=== PATIENT | male | born 1970 | race Caucasian/White ===

== ENCOUNTER 2018-02-19 03:01 | Emergency (ER) | payer OTHER ==
[~2018-02-19] VITALS: Ht 167.6 cm; Wt 77.1 kg
[~2018-02-19 03:01] MED LIST: AZIT250 PO; Bactrim Ds Tab1 EACH PO; CEFD300 PO; Cipro500 MG PO; Keflex500 MG PO; LORA1SY; Naprosyn500 MG PO; Norco 5-325 Ta1 EACH PO; TRAM50 PO; VICODIN 5-3001 EACH PO; Ventolin/Prove6.7 GM PO
[2018-02-19] MEDS ORDERED: Oxycodone HCl5 M1 PO (04:09)
== END 2018-02-19 04:28 | disposition home or self-care (01) ==
LOC: ER 03:01
DX: Z43.6 Encounter for attention to other artificial openings of urinary tract (principal); J45.909 Unspecified asthma, uncomplicated; F17.210 Nicotine dependence, cigarettes, uncomplicated; Z88.6 Allergy status to analgesic agent; Z79.51 Long term (current) use of inhaled steroids
CPT/HCPCS: 99282

== ENCOUNTER 2018-02-21 12:57 | Emergency (ER) | payer OTHER ==
[~2018-02-21] VITALS: Ht 167.6 cm; Wt 77.1 kg
[~2018-02-21 12:57] MED LIST changes: +Oxycodone HCl5 M1 PO
== END 2018-02-21 14:30 | disposition home or self-care (01) ==
LOC: ER 12:57
DX: N99.538 Other complication of continent stoma of urinary tract (principal); Z88.8 Allergy status to other drugs, medicaments and biological substances; Z79.899 Other long term (current) drug therapy; J45.909 Unspecified asthma, uncomplicated; F17.200 Nicotine dependence, unspecified, uncomplicated
CPT/HCPCS: 99282

== ENCOUNTER 2018-03-09 13:50 | Emergency (ER) | payer OTHER ==
[~2018-03-09] VITALS: Ht 167.6 cm; Wt 74.8 kg
[2018-03-09 14:32] LABS: Source, Urine Clean Catch
[2018-03-09 14:46] LABS: Bilirubin, Urine Neg (Neg); Blood, Urine 2+ (Neg); Glucose Qualitative, Urine Neg (Neg); Ketones, Urine Neg (Neg); Leukocyte Esterase, Urine 2+ (Neg); Nitrite, Urine Neg (Neg); Protein, Urine 1+ (Neg); Urobilinogen, Urine NORM (Normal)
[2018-03-09 14:55] LABS: Appearance, Urine Hazy (Clear); Color, Urine Yellow (P-Yellow)
[2018-03-09 14:56] LABS: Bacteria Many /hpf; Squamous Epithelial Cells Few /hpf (Few); White Blood Cells, Urine 50-100 /hpf (0-5)
[2018-03-09 15:33] LABS: BASOPHILS ABSOLUTE AUTO 0.03 K/mm3 (0.00-0.23); BASOPHILS PERCENT AUTO 0 % (0-2); EOSINOPHILS ABSOLUTE AUTO 0.17 K/mm3 (0.00-0.68); EOSINOPHILS PERCENT AUTO 2 % (0-6); Hematocrit 43.3 % (37.0-53.0); Hemoglobin 13.9 g/dL (13.5-17.5); IMMATURE GRAN ABSOLUTE AUTO 0.01 K/mm3 (0.00-0.10); IMMATURE GRAN PERCENT AUTO 0 % (0-1); LYMPHOCYTES ABSOLUTE AUTO 1.27 K/mm3 (0.84-5.20); LYMPHOCYTES PERCENT AUTO 15 % (21-46); MONOCYTES PERCENT AUTO 7 % (4-13); Mean Corpuscular HGB 31.4 pg (26.0-34.0); Mean Corpuscular HGB Conc 32.1 g/dL (31.5-36.5); Mean Corpuscular Volume 98 fL (80-100); Mean Platelet Volume 10.9 fL (9.1-12.4); NEUTROPHILS ABSOLUTE AUTO 6.16 K/mm3 (1.96-9.15); NEUTROPHILS PERCENT AUTO 75 % (41-73); Platelet Count 245 K/mm3 (150-400); RDW Coefficient Variation 12.9 % (11.7-14.2); RDW Standard Deviation 46.3 fL (35.1-46.3); Red Blood Cell Count 4.42 M/mm3 (4.30-5.90); White Blood Cell Count 8.24 K/mm3 (4.00-11.30)
[2018-03-09 15:41] LABS: Alanine Aminotransfer (ALT/SGP 18 U/L (12-78); Albumin, Blood 3.1 g/dL (3.4-5.0); Albumin/Globulin Ratio 0.7 (0.8-1.8); Alk Phos 86 U/L (50-136); Anion Gap 9 mmol/L (6-16); Aspartate Aminotrans (AST/SGOT 14 U/L (12-37); Bilirubin, Total 0.3 mg/dL (0.1-1.0); Blood Urea Nitrogen 7 mg/dL (8-24); Bun/Creatinine Ratio 8.1 (12.0-20.0); CO2, Blood 24 mmol/L (21-32); Calcium, Blood 8.4 mg/dL (8.5-10.1); Chloride, Blood 101 mmol/L (98-108); Creatinine, Blood 0.86 mg/dL (0.60-1.20); Globulin, Blood 4.7 g/dL (2.2-4.0); Glomerular Filtration Rate >60 (60-); Glucose, Blood 97 mg/dL (70-99); Potassium, Blood 3.7 mmol/L (3.5-5.5); Sodium, Blood 134 mmol/L (136-145); Total Protein, Blood 7.8 g/dL (6.4-8.2)
[2018-03-09] MEDS ORDERED: Keflex500 MG PO (16:22)
[2018-03-09] MEDS ORDERED: Roxicodone5 MG PO (16:22)
== END 2018-03-09 16:50 | disposition home or self-care (01) ==
LOC: ER 13:50
PROVIDERS: Physician Assistant
DX: N39.0 Urinary tract infection, site not specified (principal); J45.909 Unspecified asthma, uncomplicated; F17.200 Nicotine dependence, unspecified, uncomplicated; Z88.5 Allergy status to narcotic agent; Z79.51 Long term (current) use of inhaled steroids
CPT/HCPCS: 36415; 80053; 81001; 83605; 83690; 85025; 87077; 87086; 96374; 99282-25; J0696; J7120

== ENCOUNTER 2018-05-15 21:13 | Emergency (ER) | payer OTHER ==
[~2018-05-15] VITALS: Ht 170.2 cm; Wt 79.4 kg
[~2018-05-15 21:13] MED LIST changes: +CEPH500 PO; +Roxicodone5 MG PO
[2018-05-15 22:50] LABS: BASOPHILS ABSOLUTE AUTO 0.04 K/mm3 (0.00-0.23); BASOPHILS PERCENT AUTO 1 % (0-2); EOSINOPHILS ABSOLUTE AUTO 0.41 K/mm3 (0.00-0.68); EOSINOPHILS PERCENT AUTO 5 % (0-6); Hemoglobin 14.1 g/dL (13.5-17.5); IMMATURE GRAN ABSOLUTE AUTO 0.03 K/mm3 (0.00-0.10); IMMATURE GRAN PERCENT AUTO 0 % (0-1); LYMPHOCYTES ABSOLUTE AUTO 1.68 K/mm3 (0.84-5.20); LYMPHOCYTES PERCENT AUTO 20 % (21-46); MONOCYTES ABSOLUTE AUTO 0.57 K/mm3 (0.16-1.47); MONOCYTES PERCENT AUTO 7 % (4-13); Mean Corpuscular HGB 32.1 pg (26.0-34.0); Mean Corpuscular Volume 100 fL (80-100); Mean Platelet Volume 11.2 fL (9.1-12.4); NEUTROPHILS ABSOLUTE AUTO 5.52 K/mm3 (1.96-9.15); NEUTROPHILS PERCENT AUTO 67 % (41-73); Platelet Count 261 K/mm3 (150-400); RDW Coefficient Variation 12.6 % (11.7-14.2); RDW Standard Deviation 46.8 fL (35.1-46.3); Red Blood Cell Count 4.39 M/mm3 (4.30-5.90); White Blood Cell Count 8.25 K/mm3 (4.00-11.30)
[2018-05-15 23:08] LABS: Alanine Aminotransfer (ALT/SGP 20 U/L (12-78); Albumin, Blood 3.4 g/dL (3.4-5.0); Albumin/Globulin Ratio 0.9 (0.8-1.8); Alk Phos 55 U/L (50-136); Anion Gap 9 mmol/L (6-16); Aspartate Aminotrans (AST/SGOT 15 U/L (12-37); Bilirubin, Total 0.3 mg/dL (0.1-1.0); Blood Urea Nitrogen 16 mg/dL (8-24); CO2, Blood 26 mmol/L (21-32); Calcium, Blood 8.7 mg/dL (8.5-10.1); Chloride, Blood 108 mmol/L (98-108); Globulin, Blood 3.9 g/dL (2.2-4.0); Glomerular Filtration Rate >60 (60-); Glucose, Blood 141 mg/dL (70-99); Potassium, Blood 3.9 mmol/L (3.5-5.5); Sodium, Blood 143 mmol/L (136-145); Total Protein, Blood 7.3 g/dL (6.4-8.2)
== END 2018-05-16 00:01 | disposition home or self-care (01) ==
LOC: ER 21:13
PROVIDERS: Emergency Medicine
DX: R10.31 Right lower quadrant pain (principal); G89.29 Other chronic pain; Z88.6 Allergy status to analgesic agent
CPT/HCPCS: 36415; 74022; 80053; 83690; 85025; 96374; 99283-25; J1885

== ENCOUNTER 2018-07-12 04:01 | Emergency (ER) | payer OTHER ==
[~2018-07-12] VITALS: Ht 177.8 cm; Wt 81.7 kg
[~2018-07-12 04:01] MED LIST changes: +ALBU90OI INH; +IBUP600 PO; +OXYC10ER
[2018-07-12 04:47] LABS: BASOPHILS ABSOLUTE AUTO 0.03 K/mm3 (0.00-0.23); BASOPHILS PERCENT AUTO 0 % (0-2); EOSINOPHILS ABSOLUTE AUTO 0.41 K/mm3 (0.00-0.68); EOSINOPHILS PERCENT AUTO 5 % (0-6); Hematocrit 41.2 % (37.0-53.0); Hemoglobin 13.5 g/dL (13.5-17.5); IMMATURE GRAN ABSOLUTE AUTO 0.03 K/mm3 (0.00-0.10); IMMATURE GRAN PERCENT AUTO 0 % (0-1); LYMPHOCYTES ABSOLUTE AUTO 2.09 K/mm3 (0.84-5.20); LYMPHOCYTES PERCENT AUTO 26 % (21-46); MONOCYTES ABSOLUTE AUTO 0.53 K/mm3 (0.16-1.47); MONOCYTES PERCENT AUTO 7 % (4-13); Mean Corpuscular HGB 32.5 pg (26.0-34.0); Mean Corpuscular HGB Conc 32.8 g/dL (31.5-36.5); Mean Corpuscular Volume 99 fL (80-100); Mean Platelet Volume 11.5 fL (9.1-12.4); NEUTROPHILS ABSOLUTE AUTO 4.82 K/mm3 (1.96-9.15); NEUTROPHILS PERCENT AUTO 61 % (41-73); Platelet Count 219 K/mm3 (150-400); RDW Coefficient Variation 12.4 % (11.7-14.2); RDW Standard Deviation 45.4 fL (35.1-46.3); Red Blood Cell Count 4.16 M/mm3 (4.30-5.90); White Blood Cell Count 7.91 K/mm3 (4.00-11.30)
[2018-07-12 05:05] LABS: Alanine Aminotransfer (ALT/SGP 24 U/L (12-78); Albumin, Blood 3.5 g/dL (3.4-5.0); Albumin/Globulin Ratio 0.9 (0.8-1.8); Alk Phos 57 U/L (50-136); Anion Gap 7 mmol/L (6-16); Aspartate Aminotrans (AST/SGOT 18 U/L (12-37); Bilirubin, Total 0.5 mg/dL (0.1-1.0); Blood Urea Nitrogen 17 mg/dL (8-24); Bun/Creatinine Ratio 17.5 (12.0-20.0); CO2, Blood 26 mmol/L (21-32); Calcium, Blood 8.6 mg/dL (8.5-10.1); Chloride, Blood 105 mmol/L (98-108); Creatinine, Blood 0.97 mg/dL (0.60-1.20); Globulin, Blood 3.9 g/dL (2.2-4.0); Glomerular Filtration Rate >60 (60-); Glucose, Blood 101 mg/dL (70-99); Sodium, Blood 138 mmol/L (136-145); Total Protein, Blood 7.4 g/dL (6.4-8.2)
== END 2018-07-12 06:15 | disposition home or self-care (01) ==
LOC: ER 04:01
PROVIDERS: Emergency Medicine
DX: R10.84 Generalized abdominal pain (principal); Z59.0 Homelessness; Z88.8 Allergy status to other drugs, medicaments and biological substances; F17.210 Nicotine dependence, cigarettes, uncomplicated; J45.909 Unspecified asthma, uncomplicated; Z85.51 Personal history of malignant neoplasm of bladder
CPT/HCPCS: 36415; 74176; 80053; 83690; 85025; 96374; 96375; 99284-25; J2405; J3010; J7030

== ENCOUNTER 2018-07-13 18:02 | Emergency (ER) | payer OTHER ==
[~2018-07-13] VITALS: Ht 167.6 cm; Wt 79.4 kg
== END 2018-07-13 21:06 | disposition home or self-care (01) ==
LOC: ER 18:02
DX: T83.84XA Pain due to genitourinary prosthetic devices, implants and grafts, initial encounter (principal); J45.909 Unspecified asthma, uncomplicated; Z87.891 Personal history of nicotine dependence
CPT/HCPCS: 99282

== ENCOUNTER 2018-07-24 10:42 | Emergency (ER) | payer OTHER ==
[~2018-07-24] VITALS: Ht 170.2 cm; Wt 79.4 kg
== END 2018-07-24 11:13 | disposition home or self-care (01) ==
LOC: ER 10:42
DX: Z43.6 Encounter for attention to other artificial openings of urinary tract (principal); Z71.89 Other specified counseling; Z88.8 Allergy status to other drugs, medicaments and biological substances; J45.909 Unspecified asthma, uncomplicated; Z87.891 Personal history of nicotine dependence
CPT/HCPCS: 99282

== ENCOUNTER 2018-07-31 19:23 | Emergency (ER) | payer OTHER ==
[~2018-07-31] VITALS: Ht 167.6 cm; Wt 81.2 kg
[2018-07-31] MEDS ORDERED: [UNRECOGNIZED DRUG - SUPPLY] TOP (19:56)
== END 2018-07-31 20:11 | disposition home or self-care (01) ==
LOC: ER 19:23
DX: Z43.6 Encounter for attention to other artificial openings of urinary tract (principal); Z87.891 Personal history of nicotine dependence
CPT/HCPCS: 99282

== ENCOUNTER 2018-08-03 09:37 | Emergency (ER) | payer OTHER ==
[~2018-08-03] VITALS: Ht 177.8 cm; Wt 77.1 kg
[~2018-08-03 09:37] MED LIST changes: +[UNRECOGNIZED DRUG - SUPPLY] TOP
== END 2018-08-03 10:37 | disposition home or self-care (01) ==
LOC: ER 09:37
DX: Z43.6 Encounter for attention to other artificial openings of urinary tract (principal); Z87.891 Personal history of nicotine dependence
CPT/HCPCS: 99282

== ENCOUNTER 2018-08-05 12:33 | Emergency (ER) | payer OTHER ==
[~2018-08-05] VITALS: Ht 167.6 cm; Wt 79.4 kg
== END 2018-08-05 13:30 | disposition home or self-care (01) ==
LOC: ER 12:33
DX: Z46.6 Encounter for fitting and adjustment of urinary device (principal); Z87.891 Personal history of nicotine dependence; Z88.6 Allergy status to analgesic agent
CPT/HCPCS: 99282

== ENCOUNTER 2018-08-11 05:59 | Emergency (ER) | payer OTHER ==
[~2018-08-11] VITALS: Ht 167.6 cm; Wt 77.1 kg
== END 2018-08-11 07:18 | disposition home or self-care (01) ==
LOC: ER 05:59
DX: Z43.6 Encounter for attention to other artificial openings of urinary tract (principal); Z88.8 Allergy status to other drugs, medicaments and biological substances; Z79.899 Other long term (current) drug therapy
CPT/HCPCS: 99282

== ENCOUNTER 2018-08-14 10:17 | Emergency (ER) | payer OTHER ==
[~2018-08-14] VITALS: Ht 167.6 cm; Wt 77.1 kg
[2018-08-14 13:50] LABS: BASOPHILS ABSOLUTE AUTO 0.05 K/mm3 (0.00-0.23); BASOPHILS PERCENT AUTO 1 % (0-2); EOSINOPHILS ABSOLUTE AUTO 0.23 K/mm3 (0.00-0.68); EOSINOPHILS PERCENT AUTO 3 % (0-6); Hematocrit 48.4 % (37.0-53.0); Hemoglobin 15.3 g/dL (13.5-17.5); IMMATURE GRAN ABSOLUTE AUTO 0.02 K/mm3 (0.00-0.10); IMMATURE GRAN PERCENT AUTO 0 % (0-1); LYMPHOCYTES ABSOLUTE AUTO 2.57 K/mm3 (0.84-5.20); LYMPHOCYTES PERCENT AUTO 31 % (21-46); MONOCYTES ABSOLUTE AUTO 0.65 K/mm3 (0.16-1.47); MONOCYTES PERCENT AUTO 8 % (4-13); Mean Corpuscular HGB Conc 31.6 g/dL (31.5-36.5); Mean Corpuscular Volume 101 fL (80-100); NEUTROPHILS ABSOLUTE AUTO 4.92 K/mm3 (1.96-9.15); NEUTROPHILS PERCENT AUTO 58 % (41-73); Platelet Count 255 K/mm3 (150-400); RDW Coefficient Variation 12.4 % (11.7-14.2); RDW Standard Deviation 46.8 fL (35.1-46.3); Red Blood Cell Count 4.78 M/mm3 (4.30-5.90); White Blood Cell Count 8.44 K/mm3 (4.00-11.30)
[2018-08-14 14:20] LABS: Alanine Aminotransfer (ALT/SGP 23 U/L (12-78); Albumin, Blood 3.8 g/dL (3.4-5.0); Albumin/Globulin Ratio 0.9 (0.8-1.8); Alk Phos 62 U/L (50-136); Anion Gap 5 mmol/L (6-16); Aspartate Aminotrans (AST/SGOT 15 U/L (12-37); Bilirubin, Total 0.7 mg/dL (0.1-1.0); Blood Urea Nitrogen 12 mg/dL (8-24); Bun/Creatinine Ratio 11.5 (12.0-20.0); CO2, Blood 29 mmol/L (21-32); Calcium, Blood 8.6 mg/dL (8.5-10.1); Chloride, Blood 105 mmol/L (98-108); Creatinine, Blood 1.04 mg/dL (0.60-1.20); Globulin, Blood 4.4 g/dL (2.2-4.0); Glomerular Filtration Rate >60 (60-); Glucose, Blood 70 mg/dL (70-99); Potassium, Blood 3.7 mmol/L (3.5-5.5); Sodium, Blood 139 mmol/L (136-145); Total Protein, Blood 8.2 g/dL (6.4-8.2)
[2018-08-14 14:39] LABS: Source, Urine Urostomy Bag
[2018-08-14 14:47] LABS: Bilirubin, Urine Neg (Neg); Blood, Urine 3+ (Neg); Glucose Qualitative, Urine Neg (Neg); Ketones, Urine Neg (Neg); Leukocyte Esterase, Urine 2+ (Neg); Nitrite, Urine Neg (Neg); Protein, Urine 3+ (Neg); Urobilinogen, Urine NORM (Normal)
[2018-08-14 14:57] LABS: Appearance, Urine Clear (Clear); Color, Urine Yellow (P-Yellow)
[2018-08-14 14:58] LABS: Red Blood Cells, Urine TNTC /hpf (0-2); White Blood Cells, Urine TNTC /hpf (0-5)
[2018-08-14 15:02] LABS: Bacteria Mod /hpf; Squamous Epithelial Cells Not Seen /hpf (Few)
[2018-08-14] MEDS ORDERED: Cefpodoxime Pr100 MG PO (15:19)
== END 2018-08-14 15:42 | disposition home or self-care (01) ==
LOC: ER 10:17
PROVIDERS: Physician Assistant
DX: T83.038A Leakage of other urinary catheter, initial encounter (principal); N39.0 Urinary tract infection, site not specified; R82.71 Bacteriuria; Z88.6 Allergy status to analgesic agent; Z87.891 Personal history of nicotine dependence
CPT/HCPCS: 36415; 74176; 80053; 81001; 85025; 87077; 87086; 87186; 96365; 96375; 99283-25; J0696; J1885

== ENCOUNTER 2018-08-23 18:33 | Emergency (ER) | payer OTHER ==
[~2018-08-23] VITALS: Ht 167.6 cm; Wt 77.1 kg
[~2018-08-23 18:33] MED LIST changes: +Cefpodoxime Pr100 MG PO
[2018-08-23 20:23] LABS: BASOPHILS ABSOLUTE AUTO 0.06 K/mm3 (0.00-0.23); BASOPHILS PERCENT AUTO 1 % (0-2); EOSINOPHILS ABSOLUTE AUTO 0.22 K/mm3 (0.00-0.68); EOSINOPHILS PERCENT AUTO 3 % (0-6); IMMATURE GRAN ABSOLUTE AUTO 0.01 K/mm3 (0.00-0.10); IMMATURE GRAN PERCENT AUTO 0 % (0-1); LYMPHOCYTES ABSOLUTE AUTO 2.79 K/mm3 (0.84-5.20); LYMPHOCYTES PERCENT AUTO 40 % (21-46); MONOCYTES ABSOLUTE AUTO 0.55 K/mm3 (0.16-1.47); MONOCYTES PERCENT AUTO 8 % (4-13); Mean Corpuscular HGB 31.9 pg (26.0-34.0); Mean Corpuscular HGB Conc 32.4 g/dL (31.5-36.5); Mean Corpuscular Volume 99 fL (80-100); NEUTROPHILS ABSOLUTE AUTO 3.43 K/mm3 (1.96-9.15); NEUTROPHILS PERCENT AUTO 49 % (41-73); Platelet Count 244 K/mm3 (150-400); RDW Coefficient Variation 11.9 % (11.7-14.2); RDW Standard Deviation 44.1 fL (35.1-46.3); Red Blood Cell Count 5.64 M/mm3 (4.30-5.90); White Blood Cell Count 7.06 K/mm3 (4.00-11.30)
[2018-08-23 20:34] LABS: Hematocrit 55.6 % (37.0-53.0)
[2018-08-23 20:48] LABS: Alanine Aminotransfer (ALT/SGP 27 U/L (12-78); Albumin, Blood 4.6 g/dL (3.4-5.0); Albumin/Globulin Ratio 0.9 (0.8-1.8); Alk Phos 69 U/L (50-136); Anion Gap 4 mmol/L (6-16); Aspartate Aminotrans (AST/SGOT 16 U/L (12-37); Bilirubin, Total 0.5 mg/dL (0.1-1.0); Blood Urea Nitrogen 16 mg/dL (8-24); Bun/Creatinine Ratio 15.1 (12.0-20.0); CO2, Blood 28 mmol/L (21-32); Calcium, Blood 9.8 mg/dL (8.5-10.1); Chloride, Blood 104 mmol/L (98-108); Creatinine, Blood 1.06 mg/dL (0.60-1.20); Globulin, Blood 5.3 g/dL (2.2-4.0); Glomerular Filtration Rate >60 (60-); Glucose, Blood 63 mg/dL (70-99); Potassium, Blood 4.3 mmol/L (3.5-5.5); Sodium, Blood 136 mmol/L (136-145); Total Protein, Blood 9.9 g/dL (6.4-8.2)
== END 2018-08-23 21:34 | disposition home or self-care (01) ==
LOC: ER 18:33
PROVIDERS: Physician Assistant
DX: T83.038A Leakage of other urinary catheter, initial encounter (principal); Z91.19 Patient's noncompliance with other medical treatment and regimen; Z88.8 Allergy status to other drugs, medicaments and biological substances; Z79.899 Other long term (current) drug therapy; Z87.891 Personal history of nicotine dependence
CPT/HCPCS: 74176; 80053; 85025; 99283-25

== ENCOUNTER 2018-08-31 00:42 | Emergency (ER) | payer OTHER ==
[~2018-08-31] VITALS: Ht 167.6 cm; Wt 77.1 kg
== END 2018-08-31 02:21 | disposition home or self-care (01) ==
LOC: ER 00:42
DX: Z43.6 Encounter for attention to other artificial openings of urinary tract (principal); Z88.5 Allergy status to narcotic agent; Z79.899 Other long term (current) drug therapy; Z87.891 Personal history of nicotine dependence
CPT/HCPCS: 99282

== ENCOUNTER 2018-09-02 12:39 | Emergency (ER) | payer OTHER ==
[~2018-09-02] VITALS: Ht 167.6 cm; Wt 77.1 kg
== END 2018-09-02 13:46 | disposition home or self-care (01) ==
LOC: ER 12:39
DX: Z43.6 Encounter for attention to other artificial openings of urinary tract (principal); Z87.891 Personal history of nicotine dependence; Z88.6 Allergy status to analgesic agent

== ENCOUNTER 2018-10-03 07:20 | Emergency (ER) | payer OTHER ==
[~2018-10-03] VITALS: Ht 167.6 cm; Wt 79.4 kg
== END 2018-10-03 09:29 | disposition home or self-care (01) ==
LOC: ER 07:20
DX: T83.198A Other mechanical complication of other urinary devices and implants, initial encounter (principal); Z88.8 Allergy status to other drugs, medicaments and biological substances; Z87.891 Personal history of nicotine dependence; Z79.899 Other long term (current) drug therapy
CPT/HCPCS: 99282

== ENCOUNTER 2018-10-11 22:46 | Emergency (ER) | payer OTHER ==
[~2018-10-11] VITALS: Ht 170.2 cm; Wt 76.2 kg
== END 2018-10-12 01:00 | disposition home or self-care (01) ==
LOC: ER 22:46
DX: Z43.6 Encounter for attention to other artificial openings of urinary tract (principal); F17.200 Nicotine dependence, unspecified, uncomplicated; Z85.46 Personal history of malignant neoplasm of prostate; Z85.51 Personal history of malignant neoplasm of bladder; Z88.6 Allergy status to analgesic agent
CPT/HCPCS: 99282

== ENCOUNTER 2018-10-14 22:52 | Emergency (ER) | payer OTHER ==
[~2018-10-14] VITALS: Ht 167.6 cm; Wt 74.8 kg
== END 2018-10-15 00:25 | disposition home or self-care (01) ==
LOC: ER 22:52
DX: Z43.6 Encounter for attention to other artificial openings of urinary tract (principal); Z88.8 Allergy status to other drugs, medicaments and biological substances; Z79.899 Other long term (current) drug therapy
CPT/HCPCS: 99282

== ENCOUNTER 2018-10-16 11:51 | Emergency (ER) | payer OTHER ==
[~2018-10-16] VITALS: Ht 172.7 cm; Wt 68.0 kg
== END 2018-10-16 13:25 | disposition home or self-care (01) ==
LOC: ER 11:51
DX: C67.9 Malignant neoplasm of bladder, unspecified (principal); F17.200 Nicotine dependence, unspecified, uncomplicated
CPT/HCPCS: 99282

== ENCOUNTER 2018-10-19 18:51 | Emergency (ER) | payer OTHER ==
[~2018-10-19] VITALS: Ht 167.6 cm; Wt 76.2 kg
== END 2018-10-19 19:44 | disposition home or self-care (01) ==
LOC: ER 18:51
DX: Z43.6 Encounter for attention to other artificial openings of urinary tract (principal); Z88.8 Allergy status to other drugs, medicaments and biological substances; Z79.899 Other long term (current) drug therapy; F17.200 Nicotine dependence, unspecified, uncomplicated
CPT/HCPCS: 99282

== ENCOUNTER 2018-10-24 11:32 | Emergency (ER) | payer OTHER ==
[~2018-10-24] VITALS: Ht 167.6 cm; Wt 77.1 kg
== END 2018-10-24 12:18 | disposition home or self-care (01) ==
LOC: ER 11:32
DX: Z43.6 Encounter for attention to other artificial openings of urinary tract (principal); Z76.0 Encounter for issue of repeat prescription; Z88.8 Allergy status to other drugs, medicaments and biological substances
CPT/HCPCS: 99282

== ENCOUNTER 2018-10-29 02:15 | Emergency (ER) | payer OTHER ==
[~2018-10-29] VITALS: Ht 167.6 cm; Wt 77.1 kg
== END 2018-10-29 03:03 | disposition left against medical advice (07) ==
LOC: ER 02:15
DX: Z53.21 Procedure and treatment not carried out due to patient leaving prior to being seen by health care provider (principal)

== ENCOUNTER 2018-11-02 00:51 | Emergency (ER) | payer OTHER ==
[~2018-11-02] VITALS: Ht 167.6 cm; Wt 79.4 kg
== END 2018-11-02 01:50 | disposition home or self-care (01) ==
LOC: ER 00:51
DX: Z43.6 Encounter for attention to other artificial openings of urinary tract (principal); F17.210 Nicotine dependence, cigarettes, uncomplicated
CPT/HCPCS: 99282

== ENCOUNTER 2018-11-05 11:29 | Emergency (ER) | payer OTHER ==
[~2018-11-05] VITALS: Ht 167.6 cm; Wt 79.4 kg
== END 2018-11-05 12:50 | disposition home or self-care (01) ==
LOC: ER 11:29
DX: Z43.6 Encounter for attention to other artificial openings of urinary tract (principal); L23.1 Allergic contact dermatitis due to adhesives; F17.200 Nicotine dependence, unspecified, uncomplicated; Z88.6 Allergy status to analgesic agent

== ENCOUNTER 2018-11-09 03:00 | Emergency (ER) | payer OTHER ==
[~2018-11-09] VITALS: Ht 167.6 cm; Wt 81.7 kg
== END 2018-11-09 03:49 | disposition home or self-care (01) ==
LOC: ER 03:00
DX: T83.038A Leakage of other urinary catheter, initial encounter (principal); Z88.8 Allergy status to other drugs, medicaments and biological substances; Z79.899 Other long term (current) drug therapy; F17.210 Nicotine dependence, cigarettes, uncomplicated
CPT/HCPCS: 99282

== ENCOUNTER 2018-11-15 12:04 | Emergency (ER) | payer OTHER ==
[~2018-11-15] VITALS: Ht 167.6 cm; Wt 81.7 kg
[2018-11-15] MEDS ORDERED: TRAM50 PO (12:44)
== END 2018-11-15 13:00 | disposition home or self-care (01) ==
LOC: ER 12:04
DX: S00.03XA Contusion of scalp, initial encounter (principal); Z93.6 Other artificial openings of urinary tract status; F17.210 Nicotine dependence, cigarettes, uncomplicated; X58.XXXA Exposure to other specified factors, initial encounter

== ENCOUNTER 2018-11-19 20:42 | Emergency (ER) | payer OTHER ==
[~2018-11-19] VITALS: Ht 167.6 cm; Wt 79.4 kg
== END 2018-11-19 23:45 | disposition left against medical advice (07) ==
LOC: ER 20:42
DX: Z53.21 Procedure and treatment not carried out due to patient leaving prior to being seen by health care provider (principal)

== ENCOUNTER 2018-11-22 22:21 | Emergency (ER) | payer OTHER ==
[~2018-11-22] VITALS: Ht 167.6 cm; Wt 79.4 kg
== END 2018-11-22 23:32 | disposition home or self-care (01) ==
LOC: ER 22:21
DX: Z46.6 Encounter for fitting and adjustment of urinary device (principal); F17.210 Nicotine dependence, cigarettes, uncomplicated; Z88.8 Allergy status to other drugs, medicaments and biological substances; Z79.899 Other long term (current) drug therapy
CPT/HCPCS: 99282

== ENCOUNTER 2018-11-29 11:33 | Emergency (ER) | payer OTHER ==
[~2018-11-29] VITALS: Ht 167.6 cm; Wt 79.4 kg
== END 2018-11-29 13:25 | disposition home or self-care (01) ==
LOC: ER 11:33
DX: Z43.6 Encounter for attention to other artificial openings of urinary tract (principal); Z88.8 Allergy status to other drugs, medicaments and biological substances; Z79.899 Other long term (current) drug therapy; F17.210 Nicotine dependence, cigarettes, uncomplicated
CPT/HCPCS: 99282

== ENCOUNTER 2018-12-02 16:25 | Emergency (ER) | payer OTHER ==
[~2018-12-02] VITALS: Ht 165.1 cm; Wt 68.0 kg
== END 2018-12-02 16:53 | disposition home or self-care (01) ==
LOC: ER 16:25
DX: Z43.6 Encounter for attention to other artificial openings of urinary tract (principal); F17.210 Nicotine dependence, cigarettes, uncomplicated; Z88.6 Allergy status to analgesic agent
CPT/HCPCS: 99282

== ENCOUNTER 2018-12-14 16:33 | Emergency (ER) | payer OTHER ==
[~2018-12-14] VITALS: Ht 167.6 cm; Wt 77.1 kg
== END 2018-12-14 17:54 | disposition home or self-care (01) ==
LOC: ER 16:33
DX: Z43.6 Encounter for attention to other artificial openings of urinary tract (principal); Z79.899 Other long term (current) drug therapy; F17.210 Nicotine dependence, cigarettes, uncomplicated
CPT/HCPCS: 99282

== ENCOUNTER 2018-12-27 21:24 | Emergency (ER) | payer OTHER ==
[~2018-12-27] VITALS: Ht 167.6 cm; Wt 79.4 kg
== END 2018-12-28 00:20 | disposition home or self-care (01) ==
LOC: ER 21:24
DX: Z43.6 Encounter for attention to other artificial openings of urinary tract (principal); F17.200 Nicotine dependence, unspecified, uncomplicated; Z88.6 Allergy status to analgesic agent
CPT/HCPCS: 76770; 99284-25

== ENCOUNTER 2019-02-17 15:49 | Emergency (ER) | payer OTHER ==
[~2019-02-17] VITALS: Ht 167.6 cm; Wt 79.4 kg
[2019-02-17] MEDS ORDERED: LIDO700A20 TOP (16:18)
[2019-02-17] MEDS ORDERED: IBUP800 PO (16:18)
[2019-02-17] MEDS ORDERED: Robaxin-750750 MG PO (16:18)
[2019-02-17] MEDS ORDERED: ALBU90OI INH (16:22)
== END 2019-02-17 16:26 | disposition home or self-care (01) ==
LOC: ER 15:49
DX: M54.6 Pain in thoracic spine (principal); F17.210 Nicotine dependence, cigarettes, uncomplicated; Z88.6 Allergy status to analgesic agent
CPT/HCPCS: 99283

== ENCOUNTER 2019-05-05 01:01 | Emergency (ER) | payer OTHER ==
[~2019-05-05] VITALS: Ht 167.6 cm; Wt 79.4 kg
[~2019-05-05 01:01] MED LIST changes: +IBUP800 PO; +LIDO700A20 TOP; +Robaxin-750750 MG PO
== END 2019-05-05 02:55 | disposition left against medical advice (07) ==
LOC: ER 01:01
DX: Z53.21 Procedure and treatment not carried out due to patient leaving prior to being seen by health care provider (principal)

== ENCOUNTER 2019-11-23 00:20 | Emergency (ER) | payer SELFPAY | END 2019-11-23 01:30 | disposition home or self-care (01) | DX: N99.522 Malfunction of incontinent external stoma of urinary tract (principal); F17.210 Nicotine dependence, cigarettes, uncomplicated; Z88.5 Allergy status to narcotic agent ==

== ENCOUNTER 2020-02-20 18:12 | Observation (INO) | payer OTHER ==
[~2020-02-20] VITALS: Ht 167.6 cm; Wt 75.8 kg
[~2020-02-20 18:12] MED LIST changes: +Magic Bullet10 MG PR; +Magnesium Citr296 ML PO
[2020-02-20 19:36] LABS: BASOPHILS ABSOLUTE AUTO 0.05 K/mm3 (0.00-0.23); BASOPHILS PERCENT AUTO 0 % (0-2); EOSINOPHILS ABSOLUTE AUTO 0.16 K/mm3 (0.00-0.68); EOSINOPHILS PERCENT AUTO 1 % (0-6); Hematocrit 51.6 % (37.0-53.0); IMMATURE GRAN ABSOLUTE AUTO 0.05 K/mm3 (0.00-0.10); IMMATURE GRAN PERCENT AUTO 0 % (0-1); LYMPHOCYTES ABSOLUTE AUTO 1.87 K/mm3 (0.84-5.20); LYMPHOCYTES PERCENT AUTO 15 % (21-46); MONOCYTES PERCENT AUTO 5 % (4-13); Mean Corpuscular HGB 31.2 pg (26.0-34.0); Mean Corpuscular HGB Conc 32.9 g/dL (31.5-36.5); Mean Corpuscular Volume 95 fL (80-100); Mean Platelet Volume 10.8 fL (9.1-12.4); NEUTROPHILS ABSOLUTE AUTO 9.51 K/mm3 (1.96-9.15); NEUTROPHILS PERCENT AUTO 78 % (41-73); Platelet Count 313 K/mm3 (150-400); RDW Coefficient Variation 13.2 % (11.7-14.2); Red Blood Cell Count 5.45 M/mm3 (4.30-5.90); White Blood Cell Count 12.24 K/mm3 (4.00-11.30)
[2020-02-20 20:01] LABS: Troponin I <0.015 ng/mL (0.000-0.040)
[2020-02-20 20:03] LABS: Alanine Aminotransfer (ALT/SGP 85 U/L (12-78); Albumin, Blood 3.4 g/dL (3.4-5.0); Albumin/Globulin Ratio 0.7 (0.8-1.8); Alk Phos 74 U/L (50-136); Anion Gap 4 mmol/L (6-16); Aspartate Aminotrans (AST/SGOT 63 U/L (12-37); Bilirubin, Direct <0.1 mg/dL (0.0-0.3); Bilirubin, Indirect Unable to Calculate mg/dL (0.1-0.7); Bilirubin, Total 0.3 mg/dL (0.1-1.0); Blood Urea Nitrogen 12 mg/dL (8-24); Bun/Creatinine Ratio 14.7 (12.0-20.0); CO2, Blood 26 mmol/L (21-32); Calcium, Blood 9.1 mg/dL (8.5-10.1); Chloride, Blood 108 mmol/L (98-108); Creatinine, Blood 0.82 mg/dL (0.60-1.20); Glomerular Filtration Rate >60 (60-); Glucose, Blood 125 mg/dL (70-99); Sodium, Blood 138 mmol/L (136-145); Total Protein, Blood 8.4 g/dL (6.4-8.2)
--- NOTE | 2020-02-21 00:26 | NUR ---
History, Chart, Medications and Allergies reviewed before start of procedure. Lungs clear T/O to Auscultation. Pre-Op teaching done. Pt verbalizes understanding. PT REPORTS LAST ATE A SOFT TACO ABOUT 2 HOURS PRIOR TO ARRIVAL AT HOSPITAL. C/O PAIN MID-EPIGASTRIC AREA 02/17. PT IS SLEEPY AND FALLS BACK TO SLEEP WITH LIGHT SNORING RESPIRATIONS. APPEARS TO BE TOLERATING HIS SECRETIONS AT THIS TIME.\
--- NOTE | 2020-02-21 00:42 | NUR ---
02/21/20 0042 GeraldOlayinka PATIENT DETERMINED TO BE ASA APPROPRIATE FOR PROPOFOL SEDATION PRIOR TO START OF PROCEDURE BY DR. FRANK. DISCUSSED USE OF DEEP VS MOD DR REQUESTING DEEP. PATIENT HAS BEEN NPO WHILE IN ER SINCE ABOUT 1800 NO FOOD SINCE EARLY AFTER NOON. Bite Block Placed History, Chart, Medications and Allergies reviewed before start of procedure.MONITOR INTACT WITH CONTINUOUS PULSE OXIMETRY AND INTERMITTENT BP.O2 VIA N/C INTACT THROUGHOUT SEDATION/PROCEDURE.
--- NOTE | 2020-02-21 06:23 | NUR ---
SHIFT SUMMARY PT ARRIVED FROM SURGERY POST EGD; SELF TRANSFERED TO BED; SO AT BEDSIDE AND WAS EDUCATED ON VISITOR HOURS & EXCORTED OUT AFTER ADMIT COMPLETE; VSS; DENIES CHEST PAIN; NSR NOTED ON TELE; PT STATES HE IS A HEAVY DRINKER AND HAS NO DESIRE TO CHANGE; UROSTOMY IN PLACE SINCE 2014 DRAINING CLOUDY ODIFEROUS URINE; O2 >93 ON RA W/ COARSE LUNG SOUNDS & EXPIRATORY WHEEZES; CALL LIGHT IN REACH; BED IN LOWEST POSITION; WILL MONITOR CLOSELY UNTIL HAND OFF TO DAY SHIFT RN.
--- NOTE | 2020-02-21 07:57 | NUR ---
Awakens easily, asking for sprite. States that he is drinking without any difficulty. This morning he is tolerating clear liquids. Denies any throat soreness. Noted has a fever.
--- NOTE | 2020-02-21 08:54 | NUR ---
Dr. Rodriguez here to see the patient. Discussed pt's condition, temperature, oral intake, and concern for pt's ability to get PPI at discharge. Will continue to monitor the temperature, diet advanced, and possible discharge this afternoon per Dr. Rodriguez.
[2020-02-21 16:04] LABS: Source, Urine Urostomy Bag
--- NOTE | 2020-02-21 16:07 | NUR ---
Spoke with Dr. Rodriguez; pt continues to have fever 100 and above. Pt has been listless, drinking and eating some soft foods, but not a hearty appetite and has not been doing anything except lying in bed, sleeping on and off. His girlfriend is at the bedside, attentive to him. The pt is c/o aches and feeling chilled/feverish at times. Cool washcloth is being applied to his forehead for relief.
[2020-02-21 16:10] LABS: Bilirubin, Urine Neg (Neg); Blood, Urine 2+ (Neg); Glucose Qualitative, Urine Neg (Neg); Ketones, Urine Neg (Neg); Leukocyte Esterase, Urine Neg (Neg); Nitrite, Urine Neg (Neg); Protein, Urine Neg (Neg); Urobilinogen, Urine NORM (Normal)
[2020-02-21 16:18] LABS: Appearance, Urine Clear (Clear); Bacteria Not Seen /hpf; Color, Urine Yellow (P-Yellow); Red Blood Cells, Urine Not Seen /hpf (0-2); Squamous Epithelial Cells Not Seen /hpf (Few); White Blood Cells, Urine 0-2 /hpf (0-5)
--- NOTE | 2020-02-21 17:17 | NUR ---
The pt expresses concern about having to take prilosec once he leaves the hospital. 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 He understands that the prilosec isn't habit forming.
--- NOTE | 2020-02-21 17:38 | NUR ---
SUMMARY Juan Francisco has been listless, febrile, and this afternoon c/o aches. He is eating and drinking and tolerating that well. Able to swallow without apparent difficulty. Denies any pain in his throat, denies any problems swallowing. Urine specimen was sent due to unknown source of fever, noted that culture was not indicated. The pt took ibuprofen after eating dinner and drinking 500cc of clear liquids.
[2020-02-22 04:17] LABS: BASOPHILS ABSOLUTE AUTO 0.08 K/mm3 (0.00-0.23); BASOPHILS PERCENT AUTO 0 % (0-2); EOSINOPHILS ABSOLUTE AUTO 0.43 K/mm3 (0.00-0.68); EOSINOPHILS PERCENT AUTO 2 % (0-6); Hemoglobin 14.3 g/dL (13.5-17.5); IMMATURE GRAN ABSOLUTE AUTO 0.43 K/mm3 (0.00-0.10); IMMATURE GRAN PERCENT AUTO 2 % (0-1); LYMPHOCYTES ABSOLUTE AUTO 2.04 K/mm3 (0.84-5.20); LYMPHOCYTES PERCENT AUTO 10 % (21-46); MONOCYTES ABSOLUTE AUTO 1.31 K/mm3 (0.16-1.47); MONOCYTES PERCENT AUTO 6 % (4-13); Mean Corpuscular HGB 31.2 pg (26.0-34.0); Mean Corpuscular HGB Conc 32.5 g/dL (31.5-36.5); Mean Corpuscular Volume 96 fL (80-100); Mean Platelet Volume 11.3 fL (9.1-12.4); NEUTROPHILS ABSOLUTE AUTO 16.38 K/mm3 (1.96-9.15); NEUTROPHILS PERCENT AUTO 79 % (41-73); Platelet Count 224 K/mm3 (150-400); RDW Coefficient Variation 13.4 % (11.7-14.2); RDW Standard Deviation 47.8 fL (35.1-46.3); Red Blood Cell Count 4.58 M/mm3 (4.30-5.90); White Blood Cell Count 20.67 K/mm3 (4.00-11.30)
[2020-02-22 04:35] LABS: Anion Gap 5 mmol/L (6-16); Blood Urea Nitrogen 12 mg/dL (8-24); Bun/Creatinine Ratio 13.4 (12.0-20.0); CO2, Blood 27 mmol/L (21-32); Calcium, Blood 8.6 mg/dL (8.5-10.1); Chloride, Blood 105 mmol/L (98-108); Glomerular Filtration Rate >60 (60-); Glucose, Blood 100 mg/dL (70-99); Sodium, Blood 137 mmol/L (136-145)
--- NOTE | 2020-02-22 06:54 | NUR ---
SHIFT SUMMARY PT A&O; COMPLIANT W/ CARE; VSS; DENIES CHEST PAIN; MED STATUS NO TELE; O2 SATS >93 ON RA; TEMP DOWN TO 99.0 THIS AM; WBC INCREASE NOTED ON MORNING LABS OF 20.67; UROSTOMY DRAINING APPROPRIATELY; CALL LIGHT IN REACH; BED IN LOWEST POSITION; WILL CONTINUE TO MONITOR CLOSELY UNTIL HAND OFF TO DAY SHIFT RN.
--- NOTE | 2020-02-22 07:53 | NUR ---
ASSUMED CARE AT 0700, REPORT FROM RAMIRO ESTES. LAYING SUPINE FLAT IN BED. A/A/OX4, STATES FEELS HOT, SLIGHT DIAPHERESIS NOTED. VSS, NO FEVER AT THIS TIME. WILL CONTINUE TO MONITOR FOR ETOH WITHDRAWL AND SPEAK WITH HOSPITALIST REGARDING POSSIBLE MEDS FOR ETOH WITHDRAWL IF NEEDED. PT STATES HE'D LIKE TO GO HOME AT THIS TIME. UROSTOMY BAG IN PLACE AND CHANGED YESTERDAY. WILL CONTINUE TO MONITOR.
[2020-02-22] MEDS ORDERED: Amoxicillin500 MG PO (11:14)
[2020-02-22] MEDS ORDERED: OMEP20ER PO (11:15)
== END 2020-02-22 11:51 | disposition home or self-care (01) ==
LOC: ER 18:12 → PCU 18:13
PROVIDERS: Emergency Medicine; Internal Medicine; ADMIT Internal Medicine
PROC: 0DC58ZZ Extirpation of Matter from Esophagus, Via Natural or Artificial Opening Endoscopic (ICD-10-PCS; principal; 2020-02-20)
DX: T18.128A Food in esophagus causing other injury, initial encounter (principal); K20.9 Esophagitis, unspecified; K22.2 Esophageal obstruction; J45.909 Unspecified asthma, uncomplicated; F10.10 Alcohol abuse, uncomplicated; Y90.9 Presence of alcohol in blood, level not specified; F17.210 Nicotine dependence, cigarettes, uncomplicated; D72.829 Elevated white blood cell count, unspecified; Z59.0 Homelessness; Z88.6 Allergy status to analgesic agent; Z11.59 Encounter for screening for other viral diseases; Z79.899 Other long term (current) drug therapy
CPT/HCPCS: 36415; 71045; 74177; 80048; 80076; 81001; 83605; 83690; 84484; 85025; 93005; 93010; 94640; 94667; 94760; 96361; 96374; 96375; 96376; 99285-25; C9113; G0378; J1170; J1610; J1630; J2270; J2704; J7030; J7120; Q9967; U0002

== ENCOUNTER 2020-04-24 12:17 | Emergency (ER) | payer OTHER ==
[~2020-04-24] VITALS: Ht 167.6 cm; Wt 81.7 kg
[~2020-04-24 12:17] MED LIST changes: +Amoxicillin500 MG PO; +OMEP20ER PO
== END 2020-04-24 13:28 | disposition home or self-care (01) ==
LOC: ER 12:17
DX: Z43.6 Encounter for attention to other artificial openings of urinary tract (principal); Z88.6 Allergy status to analgesic agent; F17.210 Nicotine dependence, cigarettes, uncomplicated
CPT/HCPCS: 99281

== ENCOUNTER 2020-05-18 01:53 | Emergency (ER) | payer OTHER ==
[~2020-05-18] VITALS: Ht 167.6 cm; Wt 77.1 kg
== END 2020-05-18 02:53 | disposition home or self-care (01) ==
LOC: ER 01:53
DX: Z43.6 Encounter for attention to other artificial openings of urinary tract (principal); Z88.6 Allergy status to analgesic agent; F17.200 Nicotine dependence, unspecified, uncomplicated
CPT/HCPCS: 99282

== ENCOUNTER 2020-06-02 17:55 | Emergency (ER) | payer OTHER | END 2020-06-02 19:21 | disposition left against medical advice (07) | LOC: ER 17:55 | DX: Z53.21 Procedure and treatment not carried out due to patient leaving prior to being seen by health care provider (principal) ==

== ENCOUNTER 2021-03-22 21:35 | Emergency (ER) | payer OTHER ==
[~2021-03-22] VITALS: Ht 167.6 cm; Wt 81.7 kg
== END 2021-03-22 23:09 | disposition home or self-care (01) ==
LOC: ER 21:35
DX: Z43.6 Encounter for attention to other artificial openings of urinary tract (principal); F17.210 Nicotine dependence, cigarettes, uncomplicated; Z88.6 Allergy status to analgesic agent; Z85.46 Personal history of malignant neoplasm of prostate; Z85.51 Personal history of malignant neoplasm of bladder
CPT/HCPCS: 99282

== ENCOUNTER 2021-03-25 18:34 | Emergency (ER) | payer OTHER ==
[~2021-03-25] VITALS: Ht 167.6 cm; Wt 79.4 kg
== END 2021-03-25 22:00 | disposition home or self-care (01) ==
LOC: ER 18:34
DX: R21 Rash and other nonspecific skin eruption (principal); F17.210 Nicotine dependence, cigarettes, uncomplicated; Z88.5 Allergy status to narcotic agent
CPT/HCPCS: 74176; 99283-25

== ENCOUNTER 2021-05-20 06:00 | Emergency (ER) | payer OTHER ==
[~2021-05-20] VITALS: Ht 167.6 cm; Wt 77.1 kg
[2021-05-20 07:21] LABS: BASOPHILS ABSOLUTE AUTO 0.05 K/mm3 (0.00-0.23); BASOPHILS PERCENT AUTO 1 % (0-2); EOSINOPHILS ABSOLUTE AUTO 0.59 K/mm3 (0.00-0.68); EOSINOPHILS PERCENT AUTO 9 % (0-6); Hematocrit 44.1 % (37.0-53.0); Hemoglobin 14.3 g/dL (13.5-17.5); IMMATURE GRAN ABSOLUTE AUTO 0.02 K/mm3 (0.00-0.10); IMMATURE GRAN PERCENT AUTO 0 % (0-1); LYMPHOCYTES PERCENT AUTO 27 % (21-46); MONOCYTES ABSOLUTE AUTO 0.78 K/mm3 (0.16-1.47); MONOCYTES PERCENT AUTO 12 % (4-13); Mean Corpuscular HGB 31.3 pg (26.0-34.0); Mean Corpuscular HGB Conc 32.4 g/dL (31.5-36.5); Mean Corpuscular Volume 97 fL (80-100); Mean Platelet Volume 11.9 fL (9.1-12.4); NEUTROPHILS ABSOLUTE AUTO 3.41 K/mm3 (1.96-9.15); NEUTROPHILS PERCENT AUTO 51 % (41-73); Platelet Count 170 K/mm3 (150-400); RDW Coefficient Variation 12.7 % (11.7-14.2); RDW Standard Deviation 45.1 fL (35.1-46.3); Red Blood Cell Count 4.57 M/mm3 (4.30-5.90); White Blood Cell Count 6.65 K/mm3 (4.00-11.30)
[2021-05-20 07:38] LABS: Anion Gap 6 mmol/L (6-16); Blood Urea Nitrogen 10 mg/dL (8-24); Bun/Creatinine Ratio 12.2 (12.0-20.0); CO2, Blood 26 mmol/L (21-32); Calcium, Blood 9.1 mg/dL (8.5-10.1); Chloride, Blood 105 mmol/L (98-108); Creatinine, Blood 0.82 mg/dL (0.60-1.20); Glomerular Filtration Rate >60 (60-); Glucose, Blood 105 mg/dL (70-99); Potassium, Blood 3.9 mmol/L (3.5-5.5); Sodium, Blood 137 mmol/L (136-145)
[2021-05-20 08:28] LABS: Source, Urine Urostomy Bag
[2021-05-20 08:40] LABS: Appearance, Urine Clear (Clear); Bilirubin, Urine Neg (Neg); Blood, Urine 3+ (Neg); Color, Urine Yellow (P-Yellow); Glucose Qualitative, Urine Neg (Neg); Ketones, Urine Neg (Neg); Leukocyte Esterase, Urine 3+ (Neg); Nitrite, Urine Neg (Neg); Protein, Urine 1+ (Neg); Specific Gravity, Urine 1.015 (1.003-1.022); Urobilinogen, Urine NORM (Normal); pH, Urine 6.5 (5.0-8.0)
[2021-05-20 09:10] LABS: Red Blood Cells, Urine 0-2 /hpf (0-2); Squamous Epithelial Cells Rare /hpf (Few)
[2021-05-20 09:12] LABS: Bacteria Few /hpf
[2021-05-20] MEDS ORDERED: Bactrim Ds Tab1 EACH PO (09:38)
== END 2021-05-20 09:57 | disposition home or self-care (01) ==
LOC: ER 06:00
PROVIDERS: Emergency Medicine
DX: N99.521 Infection of incontinent external stoma of urinary tract (principal); N39.0 Urinary tract infection, site not specified; J45.909 Unspecified asthma, uncomplicated; Z88.5 Allergy status to narcotic agent
CPT/HCPCS: 36415; 76770; 80048; 81001; 85025; 87077; 87086; 87186; 96374; 99284-25; A9270; J1170

== ENCOUNTER 2021-07-10 01:53 | Emergency (ER) | payer OTHER ==
[~2021-07-10] VITALS: Ht 167.6 cm; Wt 77.1 kg
== END 2021-07-10 04:39 | disposition home or self-care (01) ==
LOC: ER 01:53
DX: Z43.6 Encounter for attention to other artificial openings of urinary tract (principal); J45.909 Unspecified asthma, uncomplicated; Z88.6 Allergy status to analgesic agent
CPT/HCPCS: 99282

== ENCOUNTER 2022-09-01 17:20 | Emergency (ER) | payer OTHER ==
[~2022-09-01] VITALS: Ht 167.6 cm; Wt 81.7 kg
== END 2022-09-01 17:45 | disposition home or self-care (01) ==
LOC: ER 17:20
DX: Z43.6 Encounter for attention to other artificial openings of urinary tract (principal); J45.909 Unspecified asthma, uncomplicated; Z79.899 Other long term (current) drug therapy; Z85.51 Personal history of malignant neoplasm of bladder; Z85.46 Personal history of malignant neoplasm of prostate
CPT/HCPCS: 99281

== ENCOUNTER 2023-02-24 07:42 | Inpatient (IN) | payer OTHER ==
[~2023-02-24] VITALS: Ht 162.6 cm; Wt 68.3 kg
[2023-02-24 09:41] LABS: BASOPHILS ABSOLUTE AUTO 0.06 K/mm3 (0.00-0.23); BASOPHILS PERCENT AUTO 0 % (0-2); EOSINOPHILS ABSOLUTE AUTO 0.26 K/mm3 (0.00-0.68); EOSINOPHILS PERCENT AUTO 2 % (0-6); Hematocrit 44.5 % (37.0-53.0); Hemoglobin 15.3 g/dL (13.5-17.5); IMMATURE GRAN ABSOLUTE AUTO 0.05 K/mm3 (0.00-0.10); IMMATURE GRAN PERCENT AUTO 0 % (0-1); LYMPHOCYTES ABSOLUTE AUTO 2.77 K/mm3 (0.84-5.20); LYMPHOCYTES PERCENT AUTO 20 % (21-46); MONOCYTES ABSOLUTE AUTO 1.55 K/mm3 (0.16-1.47); MONOCYTES PERCENT AUTO 11 % (4-13); Mean Corpuscular HGB 32.5 pg (26.0-34.0); Mean Corpuscular HGB Conc 34.4 g/dL (31.5-36.5); Mean Corpuscular Volume 95 fL (80-100); Mean Platelet Volume 11.6 fL (9.1-12.4); NEUTROPHILS ABSOLUTE AUTO 9.29 K/mm3 (1.96-9.15); NEUTROPHILS PERCENT AUTO 66 % (41-73); Platelet Count 202 K/mm3 (150-400); RDW Standard Deviation 42.1 fL (35.1-46.3); Red Blood Cell Count 4.71 M/mm3 (4.30-5.90); White Blood Cell Count 13.98 K/mm3 (4.00-11.30)
[2023-02-24 10:10] LABS: Albumin, Blood 3.7 g/dL (3.4-5.0); Albumin/Globulin Ratio 0.8 (0.8-1.8); Bilirubin, Total 1.4 mg/dL (0.1-1.0); Calcium, Blood 9.4 mg/dL (8.5-10.1); Creatinine, Blood 1.67 mg/dL (0.60-1.20); Globulin, Blood 4.7 g/dL (2.2-4.0); Potassium, Blood 4.4 mmol/L (3.5-5.5); Total Protein, Blood 8.4 g/dL (6.4-8.2)
[2023-02-24 10:28] LABS: Source, Urine Clean Catch
[2023-02-24 10:32] LABS: Appearance, Urine Cloudy (Clear); Bilirubin, Urine Neg (Neg); Blood, Urine 4+ (Neg); Color, Urine Yellow (P-Yellow); Glucose Qualitative, Urine Neg (Neg); Ketones, Urine Neg (Neg); Leukocyte Esterase, Urine 1+ (Neg); Nitrite, Urine Neg (Neg); Protein, Urine 2+ (Neg); Specific Gravity, Urine 1.015 (1.003-1.022); Urobilinogen, Urine NORM (Normal)
[2023-02-24 10:41] LABS: Mucus Light (0-Heavy)
[2023-02-24 10:42] LABS: Amorphous Light (0-Heavy); Bacteria Mod /hpf; Squamous Epithelial Cells Not Seen /hpf (Few); White Blood Cells, Urine 25-50 /hpf (0-5)
[2023-02-24 16:12] VITALS: BP 137/76
--- NOTE | 2023-02-24 17:31 | NUR ---
PT ARRIVED TO THE UNIT VIA GURNEY. PT APPEARED VERY PAINFUL UPON ARRIVAL MEDICATED PER MAR. ORIENTED TO THE ROOM. PROVIDED SODA. FAMILY AT BEDSIDE CURRENTLY. BED IS IN THE LOW POSITON AND CALL LIGHT IS WITIN REACH.
[2023-02-24 19:51] VITALS: BP 124/65
--- NOTE | 2023-02-24 23:14 | NUR ---
CALLED NIGHT HOSPITALIST- PT IN 04/19 AIN BEFORE FENTANYL WAS AVAILABLE AGAIN, 25MCG REDUCED PAIN TO 7/10 PER PT REPORT. PT STILL RESTLESS AND UNCOMFORTABLE. RECIEVED AN ORDER FOR A ADDITIONAL 50MCG OF FENTANYL NOW THEN 25-50 Q4P OXY 5MG PO PT HAS AN ALLERGY TO TYLENOL (CAUSES RASH ON HANDS AND FORE ARMS).
[2023-02-25 03:33] VITALS: BP 102/64
--- NOTE | 2023-02-25 04:38 | NUR ---
SHIFT SUMMARY- PT ALERT AND ORIENTED 1PA TO THE BEDSIDE COMMODE FOR BM'S. PT HAS A UROSTOMY IN PLACE, HE MANAGES IT. HERE FOR PEYLONEPHRITIS THE PT HAS BEEN VOIDING, FIRST DARKER YELLOW URINE AND NOW HEADER DOCK YELLOW URINE. PT WAS IN A LOT OF PAIN AT THE START OF THE SHIFT, ONCE AVAILABLE PT WAS MEDICATED WITH IV FENTANYL CALLED NIGHT HOSPITALIST FOR ADDITIONAL ORDERS. PT STATES HIS PAIN IS WELL MAAGED AT THIS TIME. PT IN BED, CALL LIGHT IN REACH NO S&S OF DISTRESS.
[2023-02-25 05:02] LABS: BASOPHILS ABSOLUTE AUTO 0.04 K/mm3 (0.00-0.23); BASOPHILS PERCENT AUTO 0 % (0-2); EOSINOPHILS ABSOLUTE AUTO 0.33 K/mm3 (0.00-0.68); EOSINOPHILS PERCENT AUTO 3 % (0-6); Hemoglobin 12.5 g/dL (13.5-17.5); IMMATURE GRAN ABSOLUTE AUTO 0.03 K/mm3 (0.00-0.10); IMMATURE GRAN PERCENT AUTO 0 % (0-1); LYMPHOCYTES ABSOLUTE AUTO 2.47 K/mm3 (0.84-5.20); LYMPHOCYTES PERCENT AUTO 23 % (21-46); MONOCYTES PERCENT AUTO 8 % (4-13); Mean Corpuscular HGB 31.6 pg (26.0-34.0); Mean Corpuscular HGB Conc 32.9 g/dL (31.5-36.5); Mean Corpuscular Volume 96 fL (80-100); Mean Platelet Volume 12.1 fL (9.1-12.4); NEUTROPHILS ABSOLUTE AUTO 7.16 K/mm3 (1.96-9.15); NEUTROPHILS PERCENT AUTO 66 % (41-73); Platelet Count 143 K/mm3 (150-400); RDW Coefficient Variation 12.2 % (11.7-14.2); RDW Standard Deviation 42.8 fL (35.1-46.3); Red Blood Cell Count 3.96 M/mm3 (4.30-5.90); White Blood Cell Count 10.93 K/mm3 (4.00-11.30)
[2023-02-25 05:35] LABS: Bun/Creatinine Ratio 20.8 (12.0-20.0); Calcium, Blood 8.1 mg/dL (8.5-10.1); Creatinine, Blood 1.01 mg/dL (0.60-1.20)
[2023-02-25 07:43] VITALS: BP 104/53
--- NOTE | 2023-02-25 13:36 | NUR ---
SMELLED CIG SMOKE IN PT'S BATHROOM AFTER PT TOOK A SHOWER. CALLED [facility] RN & NURSE LEADER TO ROOM. PT ADMITTED TO HAVING CIGARETTES AND CHEW, WILLINGLY SURRENDERED BOTH AND BOTH LOCKED UP IN PT'S MED DRAWER, PT DENIES HAVING AN IGNITION SOURCE. EDUCATED PT ON RISK OF INJURY WHEN O2 IS IN USE IN A HOSPITAL SETTING & OF HOSPITAL POLICY OF NO SMOKING IN OR ON HOSP CAMPUS.
[2023-02-25 15:57] VITALS: BP 128/64
--- NOTE | 2023-02-25 17:54 | NUR ---
SHIFT SUMMARY IS A&O X 4. VSS. IS INDEPENDENT IN THE ROOM FOR RESTROOM USE. HAS A UROSTOMY ON R SIDE OF LOWER ABD, SITE IS WNL'S, IS DRAINING YELLOW URINE. MEDICATED FOR C/O PAIN PER EMAR WITH GOOD RELIEF STATED BY PT. IS PLEASANT & COOPERATIVE WITH ALL CARE. IVF'S INFUSING PER MD ORDER. AWAITING CULTURE RESULTS. IS RECEIVING IV ANTIBIOTICS PER MD ORDER. WILL LIKELY DC HOME ONCE CLINICALLY READY.
[2023-02-25 19:43] VITALS: BP 131/75
--- NOTE | 2023-02-26 04:40 | NUR ---
SHIFT SUMMARY; NO ACUTE CHANGES OVERNIGHT. THE PT HAS BEEN RESTING IN BED FOR THE MAJORITY OF THE NIGHT. THE PT IS AXO X4 AND INDEPENDENT IN THE ROOM. THE PT HAS A UREOSTOMY THAT HE INDEPENDENTLY MANAGES. THE PT HAS BEEN MEDICATED FOR PAIN ONCE LAST NIGHT. THE PT HAS CHRONIC LOWER BACK PAIN. THE PT DENIES ANY CHEST PAIN/PRESSURE, SOB OR N/V. THE PT HAS NS RUNNING AT 150 MLS/HR. CURRENTLY THE PT IS SLEEPING IN BED WITH THE BED IN THE LOWEST POSITION AND THE CALL LIGHT AT BEDSIDE. FIRE SAFETY MAINTAINED T/O THE NIGHT.
[2023-02-26 04:56] VITALS: BP 152/77
[2023-02-26 05:18] LABS: BASOPHILS ABSOLUTE AUTO 0.02 K/mm3 (0.00-0.23); BASOPHILS PERCENT AUTO 0 % (0-2); EOSINOPHILS ABSOLUTE AUTO 0.29 K/mm3 (0.00-0.68); EOSINOPHILS PERCENT AUTO 4 % (0-6); Hemoglobin 12.3 g/dL (13.5-17.5); IMMATURE GRAN ABSOLUTE AUTO 0.01 K/mm3 (0.00-0.10); IMMATURE GRAN PERCENT AUTO 0 % (0-1); LYMPHOCYTES ABSOLUTE AUTO 1.56 K/mm3 (0.84-5.20); LYMPHOCYTES PERCENT AUTO 24 % (21-46); MONOCYTES ABSOLUTE AUTO 0.51 K/mm3 (0.16-1.47); MONOCYTES PERCENT AUTO 8 % (4-13); Mean Corpuscular HGB 31.9 pg (26.0-34.0); Mean Corpuscular HGB Conc 33.2 g/dL (31.5-36.5); Mean Corpuscular Volume 96 fL (80-100); Mean Platelet Volume 12.4 fL (9.1-12.4); NEUTROPHILS PERCENT AUTO 64 % (41-73); Platelet Count 130 K/mm3 (150-400); RDW Coefficient Variation 12.4 % (11.7-14.2); RDW Standard Deviation 43.2 fL (35.1-46.3); Red Blood Cell Count 3.86 M/mm3 (4.30-5.90); White Blood Cell Count 6.59 K/mm3 (4.00-11.30)
[2023-02-26 05:46] LABS: Bun/Creatinine Ratio 15.1 (12.0-20.0); Calcium, Blood 8.2 mg/dL (8.5-10.1); Creatinine, Blood 0.8 mg/dL (0.60-1.20); Potassium, Blood 3.6 mmol/L (3.5-5.5)
[2023-02-26 07:51] VITALS: BP 133/80
[2023-02-26] MEDS ORDERED: VISBIOME 112.51 EACH PO (14:46)
[2023-02-26] MEDS ORDERED: CIPR500 PO (14:46)
--- NOTE | 2023-02-26 15:27 | NUR ---
PT DISCHARGED THE PT VERBALIZED UNDERSTANDING OF THE DC INSTRUCTIONS. PTS PRESCRIPTIONS WERE FAXED TO [facility] REQUESTED. THE PT DECLINED A WHEELCHAIR TRANSPORT AND WALKED OUT STEADY ON HIS FEET TO MEET HIS FRIENDS.
== END 2023-02-26 15:32 | disposition home or self-care (01) | DRG 690 ==
LOC: ER 07:42 → MEDS 14:00
PROVIDERS: Internal Medicine; Physician Assistant; ADMIT Internal Medicine
DX: N10 Acute pyelonephritis (principal); E87.1 Hypo-osmolality and hyponatremia; N17.9 Acute kidney failure, unspecified; E86.9 Volume depletion, unspecified; J45.909 Unspecified asthma, uncomplicated; B96.20 Unspecified Escherichia coli [E. coli] as the cause of diseases classified elsewhere; F17.210 Nicotine dependence, cigarettes, uncomplicated; F12.90 Cannabis use, unspecified, uncomplicated; Z85.51 Personal history of malignant neoplasm of bladder; Z90.6 Acquired absence of other parts of urinary tract; Z98.890 Other specified postprocedural states; Z87.19 Personal history of other diseases of the digestive system; Z88.8 Allergy status to other drugs, medicaments and biological substances; Z79.51 Long term (current) use of inhaled steroids
CPT/HCPCS: 36415; 74177; 80048; 80053; 81001; 82947; 85025; 87077; 87086; 87186; 96365-59; 96366; 96375; 96376; 99285-25; A9270; J0696; J1170; J1650; J2405; J3010; J7030; Q9967

== ENCOUNTER 2023-04-23 18:18 | Inpatient (IN) | payer OTHER ==
[~2023-04-23] VITALS: Ht 167.6 cm; Wt 66.1 kg
[~2023-04-23 18:18] MED LIST changes: +CIPR500 PO; +VISBIOME 112.51 EACH PO
[2023-04-23 19:05] LABS: BASOPHILS ABSOLUTE AUTO 0.03 K/mm3 (0.00-0.23); BASOPHILS PERCENT AUTO 0 % (0-2); EOSINOPHILS ABSOLUTE AUTO 0.09 K/mm3 (0.00-0.68); EOSINOPHILS PERCENT AUTO 1 % (0-6); Hematocrit 48.6 % (37.0-53.0); Hemoglobin 16.2 g/dL (13.5-17.5); IMMATURE GRAN ABSOLUTE AUTO 0.02 K/mm3 (0.00-0.10); IMMATURE GRAN PERCENT AUTO 0 % (0-1); LYMPHOCYTES ABSOLUTE AUTO 1.07 K/mm3 (0.84-5.20); LYMPHOCYTES PERCENT AUTO 14 % (21-46); MONOCYTES ABSOLUTE AUTO 0.42 K/mm3 (0.16-1.47); MONOCYTES PERCENT AUTO 6 % (4-13); Mean Corpuscular HGB 31.6 pg (26.0-34.0); Mean Corpuscular HGB Conc 33.3 g/dL (31.5-36.5); Mean Corpuscular Volume 95 fL (80-100); Mean Platelet Volume 11.1 fL (9.1-12.4); NEUTROPHILS ABSOLUTE AUTO 5.86 K/mm3 (1.96-9.15); NEUTROPHILS PERCENT AUTO 78 % (41-73); Platelet Count 199 K/mm3 (150-400); RDW Coefficient Variation 12.4 % (11.7-14.2); RDW Standard Deviation 43.5 fL (35.1-46.3); Red Blood Cell Count 5.12 M/mm3 (4.30-5.90); White Blood Cell Count 7.49 K/mm3 (4.00-11.30)
[2023-04-23 19:43] LABS: Albumin, Blood 3.4 g/dL (3.4-5.0); Albumin/Globulin Ratio 0.7 (0.8-1.8); Bilirubin, Total 0.5 mg/dL (0.1-1.0); Bun/Creatinine Ratio 12.4 (12.0-20.0); Calcium, Blood 8.8 mg/dL (8.5-10.1); Creatinine, Blood 0.89 mg/dL (0.60-1.20); Globulin, Blood 4.9 g/dL (2.2-4.0); Potassium, Blood 4.3 mmol/L (3.5-5.5); Total Protein, Blood 8.3 g/dL (6.4-8.2)
[2023-04-23] MEDS ORDERED: ALBU90OI INH (19:46)
[2023-04-23 21:17] LABS: Source, Urine Urostomy Bag
[2023-04-23 21:20] LABS: Appearance, Urine Clear (Clear); Bilirubin, Urine Neg (Neg); Blood, Urine 2+ (Neg); Color, Urine Yellow (P-Yellow); Glucose Qualitative, Urine Neg (Neg); Ketones, Urine Neg (Neg); Leukocyte Esterase, Urine Neg (Neg); Nitrite, Urine Neg (Neg); Protein, Urine 1+ (Neg); Urobilinogen, Urine NORM (Normal); pH, Urine 6.5 (5.0-8.0)
[2023-04-23 21:56] LABS: Bacteria Few /hpf; Squamous Epithelial Cells Not Seen /hpf (Few); Transitional Epithelial Cells Few /hpf (0-Rare); White Blood Cells, Urine 25-50 /hpf (0-5)
[2023-04-23 23:50] VITALS: BP 139/94
[2023-04-24 05:12] LABS: BASOPHILS ABSOLUTE AUTO 0.02 K/mm3 (0.00-0.23); BASOPHILS PERCENT AUTO 0 % (0-2); EOSINOPHILS ABSOLUTE AUTO 0.15 K/mm3 (0.00-0.68); EOSINOPHILS PERCENT AUTO 3 % (0-6); Hematocrit 42.5 % (37.0-53.0); Hemoglobin 14.2 g/dL (13.5-17.5); IMMATURE GRAN PERCENT AUTO 0 % (0-1); LYMPHOCYTES ABSOLUTE AUTO 1.47 K/mm3 (0.84-5.20); LYMPHOCYTES PERCENT AUTO 32 % (21-46); MONOCYTES ABSOLUTE AUTO 0.33 K/mm3 (0.16-1.47); MONOCYTES PERCENT AUTO 7 % (4-13); Mean Corpuscular HGB 31.7 pg (26.0-34.0); Mean Corpuscular HGB Conc 33.4 g/dL (31.5-36.5); Mean Corpuscular Volume 95 fL (80-100); Mean Platelet Volume 11.4 fL (9.1-12.4); NEUTROPHILS ABSOLUTE AUTO 2.65 K/mm3 (1.96-9.15); NEUTROPHILS PERCENT AUTO 58 % (41-73); Platelet Count 148 K/mm3 (150-400); RDW Coefficient Variation 12.6 % (11.7-14.2); RDW Standard Deviation 43.9 fL (35.1-46.3); Red Blood Cell Count 4.48 M/mm3 (4.30-5.90); White Blood Cell Count 4.62 K/mm3 (4.00-11.30)
[2023-04-24 05:28] VITALS: BP 138/79
[2023-04-24 05:42] LABS: Albumin, Blood 2.7 g/dL (3.4-5.0); Albumin/Globulin Ratio 0.6 (0.8-1.8); Bilirubin, Total 0.4 mg/dL (0.1-1.0); Bun/Creatinine Ratio 12.6 (12.0-20.0); Calcium, Blood 8.3 mg/dL (8.5-10.1); Creatinine, Blood 0.96 mg/dL (0.60-1.20); Globulin, Blood 4.2 g/dL (2.2-4.0); Potassium, Blood 3.6 mmol/L (3.5-5.5); Total Protein, Blood 6.9 g/dL (6.4-8.2)
[2023-04-24 07:19] VITALS: BP 147/80
[2023-04-24 15:14] VITALS: BP 134/85
--- NOTE | 2023-04-24 18:47 | NUR ---
SHIFT SUMMARY: PATIENT IS A/OX4. CALM, PLEASANT AND COOPERATIVE c CARE. USES CALL LIGHT APPROPRIATELY AND ABLE TO MAKE NEEDS KNOWN. PATIENT ON CONTACT ISOLATION FOR HX OF ESBL IN URINE BACK IN 2018. PATIENT ON TELE, SR HR IN THE HIGH 60'S BPM. AT AROUND 1655 THIS RN RECEIVED A CALL FROM [employer] [facility]. PER YENNY PATIENT HAD ST ELAVATION OF 2.2. THIS RN ASSESS THE PATIENT; DENIES CP/PRESSURE, SOB, N/V AND DIZZINESS. PER PATIENT "I'M FINE AND COMFORTABLE RIGHT NOW AND NO PAIN AT ALL." THIS RN NOTIFIED SANITARIAN AIDEFILIBERTO AND CALLED DR. GUZMAN. RECEIVED ORDER FROM DR. KEVIN TO PERFORM EKG AND SHE WILL ORDER TROPONIN. EKG WAS DONE, c THE RESULT OF NSR, NON SPECIFIC T WAVE ABNORMALITY. VITAL SIGNS REVIEWED. PAIN TO ABDOMEN, WELL CONTROLLED c PRN PAIN MED PER EMAR. UROSTOMY TO R ABDOMEN, PATENT DRAINING CLEAR YELLOW URINE. RECEIVED IV ABX. PATIENT IS EATING AND DRINKING WELL. PIV TO L FOREARM SALINE LOCKED. CALL LIGHT IN REACH.
[2023-04-24 19:28] VITALS: BP 130/85
[2023-04-25 05:24] VITALS: BP 140/86
--- NOTE | 2023-04-25 06:25 | NUR ---
NOC SHIFT SUMMARY: FENTANYL GIVEN TWICE FOR PAIN CONTROL. INDEPENDENT. PATIENT TAKES CARE OF UROSTOMY. POSSIBLE DISCHARGE TO HOME TODAY. CONTINUES ON ROCEPHIN FOR PYELNONEPHRITIS.
[2023-04-25 07:48] VITALS: BP 147/86
[2023-04-25 08:31] LABS: BASOPHILS ABSOLUTE AUTO 0.04 K/mm3 (0.00-0.23); BASOPHILS PERCENT AUTO 1 % (0-2); EOSINOPHILS ABSOLUTE AUTO 0.31 K/mm3 (0.00-0.68); EOSINOPHILS PERCENT AUTO 6 % (0-6); Hematocrit 44.1 % (37.0-53.0); Hemoglobin 14.8 g/dL (13.5-17.5); IMMATURE GRAN ABSOLUTE AUTO 0.01 K/mm3 (0.00-0.10); IMMATURE GRAN PERCENT AUTO 0 % (0-1); LYMPHOCYTES ABSOLUTE AUTO 1.67 K/mm3 (0.84-5.20); LYMPHOCYTES PERCENT AUTO 34 % (21-46); MONOCYTES ABSOLUTE AUTO 0.49 K/mm3 (0.16-1.47); MONOCYTES PERCENT AUTO 10 % (4-13); Mean Corpuscular HGB Conc 33.6 g/dL (31.5-36.5); Mean Corpuscular Volume 95 fL (80-100); NEUTROPHILS ABSOLUTE AUTO 2.39 K/mm3 (1.96-9.15); NEUTROPHILS PERCENT AUTO 49 % (41-73); Platelet Count 186 K/mm3 (150-400); RDW Coefficient Variation 12.7 % (11.7-14.2); RDW Standard Deviation 44.3 fL (35.1-46.3); Red Blood Cell Count 4.63 M/mm3 (4.30-5.90); White Blood Cell Count 4.91 K/mm3 (4.00-11.30)
[2023-04-25 08:53] LABS: Bun/Creatinine Ratio 13.7 (12.0-20.0); Calcium, Blood 8.5 mg/dL (8.5-10.1); Creatinine, Blood 0.88 mg/dL (0.60-1.20); Potassium, Blood 4.4 mmol/L (3.5-5.5)
[2023-04-25] MEDS ORDERED: TRAM50 PO (13:08)
[2023-04-25] MEDS ORDERED: ONDA4ODT MM (13:08)
[2023-04-25] MEDS ORDERED: AMOCLA875 PO (13:08)
[2023-04-25] MEDS ORDERED: VISBIOME 112.51 EACH PO (13:09)
== END 2023-04-25 13:58 | disposition home or self-care (01) | DRG 690 ==
LOC: ER 18:18 → MEDS 18:19 → ENPENDDIS 04-25 10:33 → MEDS 04-25 13:58
PROVIDERS: Internal Medicine; Physician Assistant; ADMIT Internal Medicine
DX: N10 Acute pyelonephritis (principal); E87.1 Hypo-osmolality and hyponatremia; N12 Tubulo-interstitial nephritis, not specified as acute or chronic; B95.0 Streptococcus, group A, as the cause of diseases classified elsewhere; R74.8 Abnormal levels of other serum enzymes; J45.909 Unspecified asthma, uncomplicated; F17.200 Nicotine dependence, unspecified, uncomplicated; Z85.51 Personal history of malignant neoplasm of bladder; Z93.6 Other artificial openings of urinary tract status; Z90.79 Acquired absence of other genital organ(s); Z90.6 Acquired absence of other parts of urinary tract; Z85.46 Personal history of malignant neoplasm of prostate; Z88.6 Allergy status to analgesic agent; Z23 Encounter for immunization
CPT/HCPCS: 36415; 74177; 80048; 80053; 81001; 83735; 84484; 85025; 87086; 87147; 93005; 93010; 94760; 96361; 96365; 96375; 99284-25; J0696; J1650; J1885; J2543; J3010; J7030; Q9967

== ENCOUNTER 2023-06-15 15:26 | Emergency (ER) | payer OTHER ==
[~2023-06-15] VITALS: Ht 167.6 cm; Wt 79.4 kg
[~2023-06-15 15:26] MED LIST changes: +AMOCLA875 PO; +ONDA4ODT MM
[2023-06-15 16:08] VITALS: BP 146/86
[2023-06-15 16:32] LABS: BASOPHILS ABSOLUTE AUTO 0.03 K/mm3 (0.00-0.23); BASOPHILS PERCENT AUTO 0 % (0-2); EOSINOPHILS ABSOLUTE AUTO 0.18 K/mm3 (0.00-0.68); EOSINOPHILS PERCENT AUTO 2 % (0-6); Hematocrit 45.4 % (37.0-53.0); Hemoglobin 14.9 g/dL (13.5-17.5); IMMATURE GRAN ABSOLUTE AUTO 0.04 K/mm3 (0.00-0.10); IMMATURE GRAN PERCENT AUTO 0 % (0-1); LYMPHOCYTES ABSOLUTE AUTO 0.54 K/mm3 (0.84-5.20); LYMPHOCYTES PERCENT AUTO 5 % (21-46); MONOCYTES ABSOLUTE AUTO 0.45 K/mm3 (0.16-1.47); MONOCYTES PERCENT AUTO 4 % (4-13); Mean Corpuscular HGB 31.9 pg (26.0-34.0); Mean Corpuscular HGB Conc 32.8 g/dL (31.5-36.5); Mean Corpuscular Volume 97 fL (80-100); Mean Platelet Volume 11.4 fL (9.1-12.4); NEUTROPHILS ABSOLUTE AUTO 9.69 K/mm3 (1.96-9.15); NEUTROPHILS PERCENT AUTO 89 % (41-73); Platelet Count 209 K/mm3 (150-400); RDW Coefficient Variation 12.8 % (11.7-14.2); RDW Standard Deviation 45.8 fL (35.1-46.3); Red Blood Cell Count 4.67 M/mm3 (4.30-5.90); White Blood Cell Count 10.93 K/mm3 (4.00-11.30)
[2023-06-15 17:06] LABS: Albumin, Blood 3.4 g/dL (3.4-5.0); Albumin/Globulin Ratio 0.7 (0.8-1.8); Bilirubin, Total 0.5 mg/dL (0.1-1.0); Bun/Creatinine Ratio 28.5 (12.0-20.0); Calcium, Blood 8.5 mg/dL (8.5-10.1); Creatinine, Blood 0.77 mg/dL (0.60-1.20); Globulin, Blood 4.8 g/dL (2.2-4.0); Potassium, Blood 4.1 mmol/L (3.5-5.5); Total Protein, Blood 8.2 g/dL (6.4-8.2)
== END 2023-06-15 19:30 | disposition left against medical advice (07) ==
LOC: ER 15:26
PROVIDERS: Physician Assistant
DX: R10.9 Unspecified abdominal pain (principal); Z53.29 Procedure and treatment not carried out because of patient's decision for other reasons; Z93.6 Other artificial openings of urinary tract status
CPT/HCPCS: 74177; 80053; 85025; 99282-25; Q9967

== ENCOUNTER 2023-11-22 19:08 | Emergency (ER) | payer OTHER ==
[~2023-11-22] VITALS: Ht 167.6 cm; Wt 68.0 kg
[2023-11-22 20:23] LABS: BASOPHILS ABSOLUTE AUTO 0.02 K/mm3 (0.00-0.23); BASOPHILS PERCENT AUTO 0 % (0-2); EOSINOPHILS ABSOLUTE AUTO 0.31 K/mm3 (0.00-0.68); EOSINOPHILS PERCENT AUTO 3 % (0-6); Hematocrit 47.9 % (37.0-53.0); IMMATURE GRAN ABSOLUTE AUTO 0.02 K/mm3 (0.00-0.10); IMMATURE GRAN PERCENT AUTO 0 % (0-1); LYMPHOCYTES ABSOLUTE AUTO 2.25 K/mm3 (0.84-5.20); LYMPHOCYTES PERCENT AUTO 24 % (21-46); MONOCYTES ABSOLUTE AUTO 1.25 K/mm3 (0.16-1.47); MONOCYTES PERCENT AUTO 13 % (4-13); Mean Corpuscular HGB 31.9 pg (26.0-34.0); Mean Corpuscular HGB Conc 33.4 g/dL (31.5-36.5); Mean Corpuscular Volume 96 fL (80-100); Mean Platelet Volume 11.6 fL (9.1-12.4); NEUTROPHILS ABSOLUTE AUTO 5.53 K/mm3 (1.96-9.15); NEUTROPHILS PERCENT AUTO 59 % (41-73); Platelet Count 245 K/mm3 (150-400); RDW Coefficient Variation 12.3 % (11.7-14.2); RDW Standard Deviation 43.8 fL (35.1-46.3); Red Blood Cell Count 5.01 M/mm3 (4.30-5.90); White Blood Cell Count 9.38 K/mm3 (4.00-11.30)
[2023-11-22 20:46] LABS: Albumin, Blood 3.6 g/dL (3.4-5.0); Albumin/Globulin Ratio 0.6 (0.8-1.8); Bilirubin, Total 0.8 mg/dL (0.1-1.0); Bun/Creatinine Ratio 33.3 (12.0-20.0); Calcium, Blood 9.6 mg/dL (8.5-10.1); Creatinine, Blood 0.84 mg/dL (0.60-1.20); Globulin, Blood 5.7 g/dL (2.2-4.0); Potassium, Blood 4.7 mmol/L (3.5-5.5); Total Protein, Blood 9.3 g/dL (6.4-8.2)
[2023-11-23] MEDS ORDERED: Ketorolac Tromethamine 30mg Vial IV ONE (00:30)
[2023-11-23] MEDS ORDERED: NS 1,000 ML IV SCH (00:30)
[2023-11-23 05:30] VITALS: BP 118/81
[2023-11-23 08:21] LABS: Appearance, Urine Hazy (Clear); Bilirubin, Urine Neg (Neg); Color, Urine Yellow (P-Yellow); Glucose Qualitative, Urine Neg (Neg); Ketones, Urine Neg (Neg); Leukocyte Esterase, Urine 1+ (Neg); Nitrite, Urine Pos (Neg); Protein, Urine 2+ (Neg); Source, Urine Clean Catch; Urobilinogen, Urine 1+ (Normal)
[2023-11-23 08:22] LABS: Blood, Urine 2+ (Neg)
[2023-11-23 08:23] LABS: Bacteria Many /hpf; Red Blood Cells, Urine 0-2 /hpf (0-2); Squamous Epithelial Cells Few /hpf (Few)
== END 2023-11-23 06:00 | disposition home or self-care (01) ==
LOC: ER 19:08
PROVIDERS: Emergency Medicine
DX: L24.B3 Irritant contact dermatitis related to fecal or urinary stoma or fistula (principal); E86.0 Dehydration; F17.210 Nicotine dependence, cigarettes, uncomplicated; Z88.8 Allergy status to other drugs, medicaments and biological substances
CPT/HCPCS: 74177; 80053; 81001; 83605; 83690; 85025; 87077; 87086; 87186; 96361; 96374-59; 99284; J1885; J7030; Q9967

== ENCOUNTER 2024-01-31 10:55 | Inpatient (IN) | payer OTHER ==
[~2024-01-31] VITALS: Ht 167.6 cm; Wt 68.0 kg
[~2024-01-31 10:55] MED LIST changes: +CEFP200 PO
[2024-01-31] MEDS ORDERED: FentaNYL Citrate 50 MCG/ML 2 ML Injection IV ONE (11:25)
[2024-01-31] MEDS ORDERED: Ketorolac Tromethamine 30mg Vial IV ONE (11:25)
[2024-01-31] MEDS ORDERED: HYDROmorphone HCl/Pf 1MG SYR IV ONE ×2 (12:05→16:50)
[2024-01-31 12:23] LABS: BASOPHILS ABSOLUTE AUTO 0.04 K/mm3 (0.00-0.23); BASOPHILS PERCENT AUTO 1 % (0-2); EOSINOPHILS ABSOLUTE AUTO 0.19 K/mm3 (0.00-0.68); EOSINOPHILS PERCENT AUTO 3 % (0-6); Hematocrit 40.3 % (37.0-53.0); Hemoglobin 13.3 g/dL (13.5-17.5); IMMATURE GRAN ABSOLUTE AUTO 0.02 K/mm3 (0.00-0.10); IMMATURE GRAN PERCENT AUTO 0 % (0-1); LYMPHOCYTES ABSOLUTE AUTO 1.27 K/mm3 (0.84-5.20); LYMPHOCYTES PERCENT AUTO 17 % (21-46); MONOCYTES ABSOLUTE AUTO 0.54 K/mm3 (0.16-1.47); MONOCYTES PERCENT AUTO 7 % (4-13); Mean Corpuscular HGB 31.6 pg (26.0-34.0); Mean Corpuscular Volume 96 fL (80-100); Mean Platelet Volume 11.1 fL (9.1-12.4); NEUTROPHILS ABSOLUTE AUTO 5.48 K/mm3 (1.96-9.15); NEUTROPHILS PERCENT AUTO 73 % (41-73); Platelet Count 247 K/mm3 (150-400); RDW Coefficient Variation 12.8 % (11.7-14.2); RDW Standard Deviation 45.7 fL (35.1-46.3); Red Blood Cell Count 4.21 M/mm3 (4.30-5.90); White Blood Cell Count 7.54 K/mm3 (4.00-11.30)
[2024-01-31] MEDS ORDERED: CefTRIAXone Sodium 1,000 MG in NS 50 ML IV ONE (12:40)
[2024-01-31 12:52] LABS: Albumin/Globulin Ratio 0.6 (0.8-1.8); Bilirubin, Total 0.4 mg/dL (0.1-1.0); Calcium, Blood 8.7 mg/dL (8.5-10.1); Creatinine, Blood 0.81 mg/dL (0.60-1.20); Globulin, Blood 5.1 g/dL (2.2-4.0); Potassium, Blood 4.1 mmol/L (3.5-5.5); Total Protein, Blood 8.1 g/dL (6.4-8.2)
[2024-01-31 12:57] LABS: International Normalized Ratio 0.94; Prothrombin Time Results 10.1 Sec (9.7-11.5)
[2024-01-31] MEDS ORDERED: Ondansetron 4 MG TAB PO PRN (18:20)
[2024-01-31] MEDS ORDERED: Ondansetron HCl 2 MG / ML 2ML Vial IV PRN (18:20)
[2024-01-31 18:30] VITALS: BP 187/92
[2024-01-31] MEDS ORDERED: FentaNYL Citrate 50 MCG/ML 2 ML Injection IV PRN (18:55)
--- NOTE | 2024-01-31 19:19 | NUR ---
ARRIVAL NOTE PT ARRIVED TO THE FLOOR FROM ER VIA GURNEY, HE WAS PAINFUL WHEN HE WAS TRANSFERRED TO HIS BED, NO PAIN MEDS ON ORDER BUT WAS OBTAINED BY NOC PROVIDER. HE WAS GIVEN DINNER WHILE WAITING ON PAIN MEDS TO REMOVE LINENS AND GET HIM COMFORTABLE. NO ACUTE EVENTS THIS SHIFT. CALL LIGHT IN REACH.
[2024-01-31 19:33] VITALS: BP 152/96
[2024-01-31] MEDS ORDERED: OxyCODONE HCL 5 MG TAB PO PRN (21:35)
[2024-01-31] MEDS ORDERED: HYDROmorphone HCl/Pf 1MG SYR IV PRN (21:55)
[2024-01-31] MEDS ORDERED: NS 1,000 ML IV SCH (21:55)
[2024-02-01] VITALS (22 sets, daily range): BP systolic 135–182; BP diastolic 75–106
[2024-02-01 04:58] LABS: BASOPHILS ABSOLUTE AUTO 0.02 K/mm3 (0.00-0.23); BASOPHILS PERCENT AUTO 0 % (0-2); EOSINOPHILS ABSOLUTE AUTO 0.44 K/mm3 (0.00-0.68); EOSINOPHILS PERCENT AUTO 6 % (0-6); Hematocrit 38.8 % (37.0-53.0); Hemoglobin 12.4 g/dL (13.5-17.5); IMMATURE GRAN ABSOLUTE AUTO 0.03 K/mm3 (0.00-0.10); IMMATURE GRAN PERCENT AUTO 0 % (0-1); LYMPHOCYTES ABSOLUTE AUTO 2.15 K/mm3 (0.84-5.20); LYMPHOCYTES PERCENT AUTO 29 % (21-46); MONOCYTES ABSOLUTE AUTO 0.66 K/mm3 (0.16-1.47); MONOCYTES PERCENT AUTO 9 % (4-13); Mean Corpuscular Volume 97 fL (80-100); Mean Platelet Volume 11.4 fL (9.1-12.4); NEUTROPHILS ABSOLUTE AUTO 4.02 K/mm3 (1.96-9.15); NEUTROPHILS PERCENT AUTO 55 % (41-73); Platelet Count 218 K/mm3 (150-400); RDW Coefficient Variation 12.9 % (11.7-14.2); RDW Standard Deviation 46.5 fL (35.1-46.3); White Blood Cell Count 7.32 K/mm3 (4.00-11.30)
--- NOTE | 2024-02-01 06:18 | NUR ---
SHIFT SUMMARY PT ER ADMIT SHIFT CHANGE FOR LEFT HIP FRACTURE. PT HAS BEEN NPO SINCE MIDNIGHT IN PREP FOR PROCEDURE TODAY. PT HAS BEEN VERY PAINFUL. PT HAD DIFFICULTY WITH PAIN MANGEMENT AT THE BEGINNING OF THE SHIFT. NOTIFIED, AND MEDS WERE AJUSTED TO BE BETTER MANANGE PAIN. VITALS ARE STABLE. IVF INFUSING. CHG BATH GIVEN AND PT IN GOWN READY FOR PROCEDURE. BED IN LOWEST POSITION, CALL LIGHT WITHIN REACH.
[2024-02-01 06:22] LABS: Albumin, Blood 2.7 g/dL (3.4-5.0); Albumin/Globulin Ratio 0.6 (0.8-1.8); Bilirubin, Total 0.4 mg/dL (0.1-1.0); Bun/Creatinine Ratio 16.8 (12.0-20.0); Calcium, Blood 8.4 mg/dL (8.5-10.1); Creatinine, Blood 0.77 mg/dL (0.60-1.20); Globulin, Blood 4.4 g/dL (2.2-4.0); Magnesium, Blood 1.9 mg/dL (1.6-2.4); Potassium, Blood 4.3 mmol/L (3.5-5.5); Total Protein, Blood 7.1 g/dL (6.4-8.2)
[2024-02-01] MEDS ORDERED: CeFAZolin Sodium 2,000 MG in NS 100 ML IV SCH ×2 (06:30→23:00)
[2024-02-01] MEDS ORDERED: Enoxaparin 40 MG/0.4 ML SYR SC SCH (09:00)
[2024-02-01] MEDS ORDERED: HYDROmorphone HCl/Pf 1MG SYR ONE ×3 (11:58→16:37)
[2024-02-01] MEDS ORDERED: Lactated Ringer's 1,000 ML IV SCH (12:05)
--- NOTE | 2024-02-01 12:08 | NUR ---
PT TO OR AT ABOUT 1140
--- NOTE | 2024-02-01 12:20 | NUR ---
#20 PIV TO LEFT FOREARM-SITE CLEAR AND FLUSHES WELL.
[2024-02-01] MEDS ORDERED: Ketorolac Tromethamine 30mg Vial IV PRN (12:25)
[2024-02-01] MEDS ORDERED: HYDROmorphone HCl/Pf 1MG SYR IV PRN ×2 (12:26→14:20)
--- NOTE | 2024-02-01 12:29 | NUR ---
INTO SDS VIA BED. PT REPORTS 10/10 LEFT HIP PAIN. LEFT HIP IS VERY SWOLLEN ADN BRUISED. HISTORY AND ALLERGIES REVIEWED. LUNGS CLEAR-SATS>96% ON RA. NO NOTED SOB. NO STATUS CONFIRMED. CHLOHEXIDINE WIPE X 2 DONE TO LEFT HIP PER RAMIRO PEACE ON SURGICAL. PT HAS UROSTOMY THAT HAS A "LEAK" PT HAQ PAD CHANGED, BUT UNABLE TO CLEANSE PT OR CHANGE THE LINENS DUE TO PAIN. PT IS HOMELESS AND HE STATES THAT THERE IS NO FAMILY TO CONTACT POSTOPERATIVELY.
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
[2024-02-01] MEDS ORDERED: Tranexamic Acid 100 ML IV SCH (13:05)
[2024-02-01] MEDS ORDERED: Naloxone HCl 0.4MG / ML 1ML Vial IV PRN (14:10)
[2024-02-01] MEDS ORDERED: Ondansetron HCl 2 MG / ML 2ML Vial IV PRN (14:10)
[2024-02-01] MEDS ORDERED: Metoclopramide HCl 10 MG Tab PO PRN (14:10)
[2024-02-01] MEDS ORDERED: Bisacodyl 10 MG Supp PR PRN (14:10)
[2024-02-01] MEDS ORDERED: Magnesium Hydroxide Conc 10 ML UDC PO PRN (14:15)
[2024-02-01] MEDS ORDERED: Ondansetron 4 MG TAB PO PRN (14:15)
[2024-02-01] MEDS ORDERED: OxyCODONE HCL 5 MG TAB PO PRN (14:15)
[2024-02-01] MEDS ORDERED: Ketorolac Tromethamine 15mg Vial IV PRN (14:25)
[2024-02-01] MEDS ORDERED: FentaNYL Citrate 50 MCG/ML 5 ML Injection ONE (14:56)
[2024-02-01] MEDS ORDERED: propofoL 20 ML IV ONE ×2 (14:57→15:10)
[2024-02-01] MEDS ORDERED: Ondansetron HCl 2 MG / ML 2ML Vial ONE (15:10)
[2024-02-01] MEDS ORDERED: Dexamethasone Sod Phos 10 MG/ML 1ML VIAL ONE (15:10)
[2024-02-01] MEDS ORDERED: NS KCl 20mEq 1,000 ML IV SCH (16:00)
[2024-02-01] MEDS ORDERED: FentaNYL Citrate 50 MCG/ML 2 ML Injection ONE ×2 (16:37→17:02)
[2024-02-01] MEDS ORDERED: Ketorolac Tromethamine 30mg Vial ONE (16:37)
--- NOTE | 2024-02-01 18:15 | NUR ---
POST OP: REPORT RECEIVED FROM BASEBALL INSPECTOR, PT TO UNIT AT ABOUT 1740. A/O ,VSS. SURGICAL SITES TO L HIP CDI. PT DENIES N/T AND ABLE TO WIGGLE TOES, PEDAL PULSE +2. PT ABLE TO SIT HIMSELF UP AND EAT DINNER IN BED WITHOUT DIFFICULTY AND SAYS HE "FEELS SO MUCH BETTER". REPORTS MINIMAL PAIN AT THIS TIME. PT GIVEN CALL LIGHT AND INSTRUCTED TO CALL IF HE NEEDS OOB.
[2024-02-01] MEDS ORDERED: Nicotine 21 MG PATCH TOP SCH (18:41)
[2024-02-01] MEDS ORDERED: Docusate Sodium 100 MG Cap PO SCH (21:00)
[2024-02-01] MEDS ORDERED: HYDROmorphone HCl 2 MG Tab PO PRN (23:15)
[2024-02-02 04:25] VITALS: BP 133/79
[2024-02-02 04:44] LABS: BASOPHILS ABSOLUTE AUTO 0.02 K/mm3 (0.00-0.23); BASOPHILS PERCENT AUTO 0 % (0-2); EOSINOPHILS ABSOLUTE AUTO 0.01 K/mm3 (0.00-0.68); EOSINOPHILS PERCENT AUTO 0 % (0-6); Hematocrit 38.5 % (37.0-53.0); Hemoglobin 12.5 g/dL (13.5-17.5); IMMATURE GRAN ABSOLUTE AUTO 0.03 K/mm3 (0.00-0.10); IMMATURE GRAN PERCENT AUTO 0 % (0-1); LYMPHOCYTES ABSOLUTE AUTO 1.51 K/mm3 (0.84-5.20); LYMPHOCYTES PERCENT AUTO 15 % (21-46); MONOCYTES ABSOLUTE AUTO 0.72 K/mm3 (0.16-1.47); MONOCYTES PERCENT AUTO 7 % (4-13); Mean Corpuscular HGB 31.5 pg (26.0-34.0); Mean Corpuscular HGB Conc 32.5 g/dL (31.5-36.5); Mean Corpuscular Volume 97 fL (80-100); Mean Platelet Volume 11.4 fL (9.1-12.4); NEUTROPHILS ABSOLUTE AUTO 7.61 K/mm3 (1.96-9.15); NEUTROPHILS PERCENT AUTO 77 % (41-73); Platelet Count 197 K/mm3 (150-400); RDW Coefficient Variation 12.7 % (11.7-14.2); RDW Standard Deviation 45.1 fL (35.1-46.3); Red Blood Cell Count 3.97 M/mm3 (4.30-5.90)
[2024-02-02 04:58] LABS: Bun/Creatinine Ratio 18.9 (12.0-20.0); Calcium, Blood 8.4 mg/dL (8.5-10.1); Creatinine, Blood 0.85 mg/dL (0.60-1.20); Magnesium, Blood 2.1 mg/dL (1.6-2.4); Potassium, Blood 5.1 mmol/L (3.5-5.5)
--- NOTE | 2024-02-02 05:01 | NUR ---
SHIFT SUMMARY PT HAS RESTED MOST OF THE NIGHT. MEDICATED FOR PAIN PRN PER EMAR. PT HAS APPEARED TO SLEEPING DURING MOST OF NURSING ROUNDS. PT REPORTS THAT HE HAD A GOOD NIGHT. SURIGCAL SITE WNL. POST OP VITALS ARE STABLE. PT APPETITE GOOD, REQUESTS SNACKS FREQUENTLY. TOLERATING PO INTAKE, AND HE IS VOIDING INTO UROSTOMY.
[2024-02-02 07:24] VITALS: BP 140/69
[2024-02-02] MEDS ORDERED: Enoxaparin 40 MG/0.4 ML SYR SC SCH (09:00)
[2024-02-02] MEDS ORDERED: Nicotine 21 MG PATCH TOP SCH (09:00)
[2024-02-02] MEDS ORDERED: Ketorolac Tromethamine 15mg Vial IV PRN (12:40)
[2024-02-02] MEDS ORDERED: OxyCODONE HCL 5 MG TAB PO PRN (12:40)
[2024-02-02 14:45] VITALS: BP 132/77
[2024-02-02] MEDS ORDERED: Acetaminophen 500 MG Tab PO SCH (16:00)
--- NOTE | 2024-02-02 17:11 | NUR ---
SHIFT SUMMARY PT IS POD#1 FROM L FEMUR REPAIR WITH DR. MARTIN. PAIN MANAGED WITH PO PAIN MEDICATION. PT WORKED WITH THERAPY AND IS A 1 ASSIST. PT HAS BE[facility] AT [facility], POSSIBLE DISCHARGE TOMORROW. PT USES CALL LIGHT APPROPRIATELY, PT IS PLEASANT AND COOPERATIVE. PT HAS BEEN MOTIVATED TO WORK WITH THERAPY AND GET OOB.
[2024-02-02 19:34] VITALS: BP 135/79
[2024-02-03 04:08] VITALS: BP 150/79
--- NOTE | 2024-02-03 04:53 | NUR ---
SHIFT SUMMARY POD 2 L HIP NAILING PT ABLE TO REST DURING THE NIGHT. PAIN MANAGED PER EMAR. PT HAVING GOOD OUTPUT IN UROSTOMY, CHANGED APPLIANCE BY SELF. PT HAS 2 AQUACEL TO L HIP , C/D/I. PT TRANSFERRING WITH 1P ASST FWW AND GB. PT REMAINS TTWB AND COMPLIES WITH REGUALTIONS. VSS. TOLERATING PO INTAKE. NO OTHER CONCERNS AT THIS TIME, CALL LIGHT WITHIN REACH
[2024-02-03 07:28] VITALS: BP 152/85
[2024-02-03 09:32] LABS: SARS-Cov-2 (COVID-19) PCR, MMC NEGATIVE (NEGATIVE)
--- NOTE | 2024-02-03 18:42 | NUR ---
SHIFT SUMMARY POD2 L HIP NAILING/AQUACEL CDI, A&OX4, VSS/RA, AURELIANO PO, VOIDING, AMB SBA FWW/GB, PAIN MANAGED, IV DC'D. REPORT CALLED TO THEO CLEMONS/AMY.
== END 2024-02-03 14:50 | disposition home or self-care (01) | DRG 481 ==
LOC: ER 10:55 → SURS 10:56 → ER 02-01 07:30 → SURS 02-03 14:50
PROVIDERS: Internal Medicine; Orthopaedic Surgery; Student in an Organized Health Care Education/Training Program; ADMIT Internal Medicine
PROC: 0QS706Z Reposition Left Upper Femur with Intramedullary Internal Fixation Device, Open Approach (ICD-10-PCS; principal; 2024-02-01 13:00)
DX: S72.142A Displaced intertrochanteric fracture of left femur, initial encounter for closed fracture (principal); N13.6 Pyonephrosis; N39.0 Urinary tract infection, site not specified; Z59.00 Homelessness unspecified; R10.31 Right lower quadrant pain; V29.99XA Rider (driver) (passenger) of other motorcycle injured in unspecified traffic accident, initial encounter; Z79.899 Other long term (current) drug therapy; Z85.46 Personal history of malignant neoplasm of prostate; J45.909 Unspecified asthma, uncomplicated; Z98.890 Other specified postprocedural states; F17.210 Nicotine dependence, cigarettes, uncomplicated; T83.098A Other mechanical complication of other urinary catheter, initial encounter; Z87.81 Personal history of (healed) traumatic fracture; Z71.6 Tobacco abuse counseling; Z88.8 Allergy status to other drugs, medicaments and biological substances; D64.9 Anemia, unspecified; B96.4 Proteus (mirabilis) (morganii) as the cause of diseases classified elsewhere; Z85.51 Personal history of malignant neoplasm of bladder; Z90.49 Acquired absence of other specified parts of digestive tract
CPT/HCPCS: 36415; 73502; 74177; 80048; 80053; 81001; 83605; 83690; 83735; 85025; 85610; 87077; 87086; 87186; 88305; 88311; 93005; 93010; 94762; 96361; 96365; 96365-59; 96375; 96376; 97110; 97116; 97162; 97165; 97530; 97535; 99284-25; 99285-25; A9270; C1713; C1769; G0378; J0690; J0696; J1100; J1170; J1650; J1885; J2060; J2405; J2704; J3010; J7030; J7120; Q9967; U0002

== ENCOUNTER → 2024-07-07 | Outpatient (CLI) | payer OTHER ==
[2024-07-07 14:05] LABS: U Amphetamine Screen DETECTED; U Barbituate Screen Not Detected; U Benzodiazapine Screen Not Detected; U Buprenorphine Screen Not Detected; U Cannabinoids Screen DETECTED; U Cocaine Screen Not Detected; U Methadone Screen Not Detected; U Methamphetamine Screen DETECTED; U Opiates Screen Not Detected; U Oxycodone Screen Not Detected; U Phencyclidine Screen Not Detected
== END ==
LOC: LAB SHORT 13:30 → LAB 13:30
PROVIDERS: Nurse Practitioner Family
DX: Z02.83 Encounter for blood-alcohol and blood-drug test (principal)

== ENCOUNTER 2024-11-22 13:08 | Emergency (ER) | payer OTHER ==
[~2024-11-22] VITALS: Ht 170.2 cm; Wt 59.0 kg
[2024-11-22 13:42] VITALS: BP 138/95
== END 2024-11-22 18:45 | disposition left against medical advice (07) ==
LOC: ER 13:08
DX: R10.9 Unspecified abdominal pain (principal); Z53.29 Procedure and treatment not carried out because of patient's decision for other reasons

== ENCOUNTER 2024-12-12 01:17 | Emergency (ER) | payer OTHER ==
[~2024-12-12] VITALS: Ht 167.6 cm; Wt 63.5 kg
[2024-12-12] MEDS ORDERED: Ketorolac Tromethamine 15mg Vial IV ONE (01:25)
[2024-12-12 02:11] LABS: Source, Urine Urostomy Bag
[2024-12-12 02:17] LABS: Appearance, Urine Cloudy (Clear); Bilirubin, Urine Neg (Neg); Blood, Urine 2+ (Neg); Color, Urine Yellow (P-Yellow); Glucose Qualitative, Urine Neg (Neg); Ketones, Urine Neg (Neg); Leukocyte Esterase, Urine 3+ (Neg); Nitrite, Urine Pos (Neg); Protein, Urine 2+ (Neg); Urobilinogen, Urine NORM (Normal)
[2024-12-12 02:26] LABS: BASOPHILS ABSOLUTE AUTO 0.04 K/mm3 (0.00-0.23); BASOPHILS PERCENT AUTO 1 % (0-2); EOSINOPHILS ABSOLUTE AUTO 0.18 K/mm3 (0.00-0.68); EOSINOPHILS PERCENT AUTO 3 % (0-6); Hematocrit 39.5 % (37.0-53.0); Hemoglobin 12.9 g/dL (13.5-17.5); IMMATURE GRAN ABSOLUTE AUTO 0.01 K/mm3 (0.00-0.10); IMMATURE GRAN PERCENT AUTO 0 % (0-1); LYMPHOCYTES ABSOLUTE AUTO 1.59 K/mm3 (0.84-5.20); LYMPHOCYTES PERCENT AUTO 25 % (21-46); MONOCYTES ABSOLUTE AUTO 0.59 K/mm3 (0.16-1.47); MONOCYTES PERCENT AUTO 9 % (4-13); Mean Corpuscular HGB 31.5 pg (26.0-34.0); Mean Corpuscular HGB Conc 32.7 g/dL (31.5-36.5); Mean Corpuscular Volume 97 fL (80-100); Mean Platelet Volume 11.7 fL (9.1-12.4); NEUTROPHILS ABSOLUTE AUTO 3.94 K/mm3 (1.96-9.15); NEUTROPHILS PERCENT AUTO 62 % (41-73); Platelet Count 192 K/mm3 (150-400); RDW Coefficient Variation 13.2 % (11.7-14.2); RDW Standard Deviation 47.4 fL (35.1-46.3); Red Blood Cell Count 4.09 M/mm3 (4.30-5.90); White Blood Cell Count 6.35 K/mm3 (4.00-11.30)
[2024-12-12 02:28] LABS: Bacteria Many /hpf; Red Blood Cells, Urine 0-2 /hpf (0-2); Squamous Epithelial Cells Many /hpf (Few); Triple Phosphate Crystals Few /hpf; White Blood Cells, Urine 25-50 /hpf (0-5)
[2024-12-12 02:28] LABS: Alanine Aminotransfer (ALT/SGP 107 U/L (12-78); Albumin, Blood 3.4 g/dL (3.4-5.0); Albumin/Globulin Ratio 0.7 (0.8-1.8); Alk Phos 81 U/L (50-136); Anion Gap 10 mmol/L (3-11); Aspartate Aminotrans (AST/SGOT 116 U/L (12-37); Bilirubin, Total 0.6 mg/dL (0.1-1.0); Blood Urea Nitrogen 23 mg/dL (8-24); Bun/Creatinine Ratio 21.1 (12.0-20.0); CO2, Blood 22 mmol/L (21-32); Calcium, Blood 8.8 mg/dL (8.5-10.1); Chloride, Blood 109 mmol/L (98-108); Creatinine, Blood 1.09 mg/dL (0.60-1.20); Ethanol (Alcohol), Blood, Med <3 mg/dL; Glomerular Filtration Rate 80 (60-); Glucose, Blood 122 mg/dL (70-99); Potassium, Blood 3.8 mmol/L (3.5-5.5); Sodium, Blood 137 mmol/L (136-145); Total Protein, Blood 8.4 g/dL (6.4-8.2)
[2024-12-12 02:31] LABS: U Amphetamine Screen DETECTED; U Barbituate Screen Not Detected; U Benzodiazapine Screen Not Detected; U Buprenorphine Screen Not Detected; U Cannabinoids Screen DETECTED; U Cocaine Screen Not Detected; U Methadone Screen Not Detected; U Methamphetamine Screen DETECTED; U Opiates Screen Not Detected; U Oxycodone Screen Not Detected; U Phencyclidine Screen Not Detected
[2024-12-12] MEDS ORDERED: MIRALAX17 GM PO (04:51)
[2024-12-12] MEDS ORDERED: Magnesium Hydroxide Conc 10 ML UDC PO ONE (04:55)
[2024-12-12 05:08] VITALS: BP 131/69
[2024-12-25] MEDS ORDERED: CEFD300 PO (07:59)
== END 2024-12-12 04:55 | disposition home or self-care (01) ==
LOC: ER 01:17
PROVIDERS: Emergency Medicine
DX: K59.00 Constipation, unspecified (principal); F15.10 Other stimulant abuse, uncomplicated; J45.909 Unspecified asthma, uncomplicated; F17.210 Nicotine dependence, cigarettes, uncomplicated; Z93.50 Unspecified cystostomy status; Z85.46 Personal history of malignant neoplasm of prostate; Z85.51 Personal history of malignant neoplasm of bladder; Z88.6 Allergy status to analgesic agent
CPT/HCPCS: 74176; 80053; 80320; 81001; 83605; 83690; 85025; 87086; 96374; 99284-25

== ENCOUNTER 2025-03-03 17:44 | Inpatient (IN) | payer OTHER ==
[~2025-03-03] VITALS: Ht 167.6 cm; Wt 70.1 kg
[~2025-03-03 17:44] MED LIST changes: +MIRALAX17 GM PO; +Macrobid 100 M100 MG PO; +Pyridium100 MG PO
[2025-03-03 18:49] LABS: BASOPHILS ABSOLUTE AUTO 0.06 K/mm3 (0.00-0.23); BASOPHILS PERCENT AUTO 0 % (0-2); EOSINOPHILS ABSOLUTE AUTO 0.23 K/mm3 (0.00-0.68); EOSINOPHILS PERCENT AUTO 2 % (0-6); Hematocrit 44.4 % (37.0-53.0); Hemoglobin 14.8 g/dL (13.5-17.5); IMMATURE GRAN ABSOLUTE AUTO 0.04 K/mm3 (0.00-0.10); IMMATURE GRAN PERCENT AUTO 0 % (0-1); LYMPHOCYTES ABSOLUTE AUTO 2.57 K/mm3 (0.84-5.20); LYMPHOCYTES PERCENT AUTO 19 % (21-46); MONOCYTES ABSOLUTE AUTO 1.06 K/mm3 (0.16-1.47); MONOCYTES PERCENT AUTO 8 % (4-13); Mean Corpuscular HGB Conc 33.3 g/dL (31.5-36.5); Mean Corpuscular Volume 96 fL (80-100); NEUTROPHILS ABSOLUTE AUTO 9.85 K/mm3 (1.96-9.15); NEUTROPHILS PERCENT AUTO 71 % (41-73); NRBC ABSOLUTE 0.00 K/mm3 (0.00-0.02); NRBC Auto 0.0 /100 WBC (0.0-0.2); Platelet Count 265 K/mm3 (150-400); RDW Coefficient Variation 12.7 % (11.7-14.2); RDW Standard Deviation 45.2 fL (35.1-46.3)
[2025-03-03 19:09] LABS: Alanine Aminotransfer (ALT/SGP 16.0 U/L (12-78); Albumin, Blood 3.7 g/dL (3.4-5.0); Albumin/Globulin Ratio 0.6 (0.8-1.8); Anion Gap 9.0 mmol/L (3-11); Aspartate Aminotrans (AST/SGOT 24.0 U/L (12-37); Bilirubin, Total 0.5 mg/dL (0.1-1.0); Blood Urea Nitrogen 30.0 mg/dL (8-24); CO2, Blood 20.0 mmol/L (21-32); Calcium, Blood 9.4 mg/dL (8.5-10.1); Chloride, Blood 107.0 mmol/L (98-108); Creatinine, Blood 1.56 mg/dL (0.60-1.20); Globulin, Blood 5.7 g/dL (2.2-4.0); Glucose, Blood 98.0 mg/dL (70-99); Potassium, Blood 4.4 mmol/L (3.5-5.5); Sodium, Blood 132.0 mmol/L (136-145); Total Protein, Blood 9.4 g/dL (6.4-8.2)
[2025-03-03] MEDS ORDERED: Ketorolac Tromethamine 15mg Vial IV ONE (20:45)
[2025-03-03] MEDS ORDERED: Morphine Sulfate 4 MG/1 ML Injection IV ONE (20:45)
[2025-03-03 21:07] LABS: Source, Urine Urostomy Bag
[2025-03-03 21:14] LABS: Bilirubin, Urine Neg (Neg); Glucose Qualitative, Urine Neg (Neg); Ketones, Urine Neg (Neg); Leukocyte Esterase, Urine 3+ (Neg); Protein, Urine 3+ (Neg); Specific Gravity, Urine 1.010 (1.003-1.022); Urobilinogen, Urine NORM (Normal)
[2025-03-03 21:34] LABS: Color, Urine Pale Yellow (P-Yellow)
[2025-03-03 21:40] LABS: White Blood Cells, Urine 50-100 /hpf (0-5)
[2025-03-03] MEDS ORDERED: CefTRIAXone Sodium 1,000 MG in NS 100 ML IV ONE (21:50)
[2025-03-03] MEDS ORDERED: NS 1,000 ML IV SCH ×2 (22:34→23:00)
[2025-03-03] MEDS ORDERED: Morphine Sulfate 4 MG/1 ML Injection IV PRN (22:45)
[2025-03-03] MEDS ORDERED: Vancomycin (Pharmacy Consult) IV SCH (22:45)
[2025-03-04 00:03] VITALS: BP 141/81
--- NOTE | 2025-03-04 03:59 | NUR ---
SHIFT SUMMARY A/OX4, IND IN ROOM. UROSTOMY TO RLQ WITH YELLOW PURULENT FOUL SMELLING URINE DRAINING. IV ABX AND FLUIDS INFUSING. NO ACUTE CHANGES AT THIS TIME.
[2025-03-04 04:29] VITALS: BP 118/71
[2025-03-04 04:38] LABS: BASOPHILS ABSOLUTE AUTO 0.05 K/mm3 (0.00-0.23); BASOPHILS PERCENT AUTO 1 % (0-2); EOSINOPHILS ABSOLUTE AUTO 0.38 K/mm3 (0.00-0.68); EOSINOPHILS PERCENT AUTO 4 % (0-6); Hematocrit 42.0 % (37.0-53.0); Hemoglobin 13.8 g/dL (13.5-17.5); IMMATURE GRAN ABSOLUTE AUTO 0.02 K/mm3 (0.00-0.10); IMMATURE GRAN PERCENT AUTO 0 % (0-1); LYMPHOCYTES ABSOLUTE AUTO 3.27 K/mm3 (0.84-5.20); LYMPHOCYTES PERCENT AUTO 32 % (21-46); MONOCYTES ABSOLUTE AUTO 0.78 K/mm3 (0.16-1.47); MONOCYTES PERCENT AUTO 8 % (4-13); Mean Corpuscular HGB Conc 32.9 g/dL (31.5-36.5); Mean Corpuscular Volume 96 fL (80-100); NEUTROPHILS ABSOLUTE AUTO 5.64 K/mm3 (1.96-9.15); NEUTROPHILS PERCENT AUTO 56 % (41-73); NRBC ABSOLUTE 0.00 K/mm3 (0.00-0.02); NRBC Auto 0.0 /100 WBC (0.0-0.2); Platelet Count 222 K/mm3 (150-400); RDW Coefficient Variation 12.6 % (11.7-14.2); RDW Standard Deviation 44.7 fL (35.1-46.3)
[2025-03-04 04:58] LABS: Alanine Aminotransfer (ALT/SGP 14.0 U/L (12-78); Albumin, Blood 3.1 g/dL (3.4-5.0); Albumin/Globulin Ratio 0.6 (0.8-1.8); Anion Gap 9.0 mmol/L (3-11); Aspartate Aminotrans (AST/SGOT 18.0 U/L (12-37); Bilirubin, Total 0.5 mg/dL (0.1-1.0); Blood Urea Nitrogen 32.0 mg/dL (8-24); CO2, Blood 23.0 mmol/L (21-32); Calcium, Blood 8.6 mg/dL (8.5-10.1); Chloride, Blood 108.0 mmol/L (98-108); Creatinine, Blood 1.18 mg/dL (0.60-1.20); Globulin, Blood 5.0 g/dL (2.2-4.0); Glucose, Blood 80.0 mg/dL (70-99); Potassium, Blood 3.8 mmol/L (3.5-5.5); Sodium, Blood 136.0 mmol/L (136-145); Total Protein, Blood 8.1 g/dL (6.4-8.2)
[2025-03-04 07:37] VITALS: BP 111/63
[2025-03-04 14:38] VITALS: BP 129/74
--- NOTE | 2025-03-04 14:50 | NUR ---
FULL ASSESSMENT PATIENT IS ALERT AND ORIENTED X4 AND COOPERATIVE. PATIENT'S NEUROLOGIC STATUS IS WITHING NORMAL LIMITS. LUNGS SOUNDS ARE CLEAR BILATERALY. PATIENT'S UPPER BODY AND LOWER BODY STRENGTH IS APPROPIATE FOR PATIENT. iV IS IN RIGHT RADIAL SITE AND IS PATENT. PATIENT HAS A URUOSTOMY WITH BAG ATTACHED. STOMA WAS RED/PINK IN APPEARNCE. URINE APPEARED CLOUDY AND TURBID. PATIENT REPORTS PAIN IN LOWER LEFT ABDOMEN AND FLANK, MEDICATED PER EMAR. ADBOMIN APPEARED MILDLY DISTENDED AND WAS TENDER UPON PALPATION. PATIENT IS AWAITING CONSULT FROM IR AND REMAINS MPO UNTIL FURTHER ORDERS.
--- NOTE | 2025-03-04 17:30 | NUR ---
SHIFT SUMMARY PATIENT IS PENDING IR FOR UROLOGY PROCEDURE. HIS VITALS ARE WITHIN NORMAL LIMITS AND STABLE. HIS DIET WAS UPDATED AND FOOD WAS PROVIDED. PATIENT REMAINS COOPERATIVE AND IS LAYING IN BED. HIS IV FLUIDS ARE RUNNING AT 100 MLS/HR. BED IS IN LOWEST POSITION AND CALL LIGHT IS WITHIN REACH.
[2025-03-04 19:01] VITALS: BP 140/76
[2025-03-04] MEDS ORDERED: CefTRIAXone Sodium 1,000 MG in NS 100 ML IV SCH (21:00)
[2025-03-05] VITALS (12 sets, daily range): BP systolic 132–201; BP diastolic 75–102
--- NOTE | 2025-03-05 04:03 | NUR ---
SHIFT SUMMARY NO ACUTE CHANGES OVERNIGHT. VSS. NPO. IV FLUIDS/ABX INFUSING PER EMAR. UROSTOMY DRAINING FOUL-SMELLING YELLOW URINE TO GRAVITY. PT REPORTS FLANK PAIN, MEDICATED PER EMAR c RELIEF. IND IN ROOM. SIGNIFICANT OTHER @ BEDSIDE. ANTICIPATED SURGICAL INTERVENTION LATER TODAY. CALL LIGHT IN REACH, BED IN LOWEST POSITION, WILL REPORT TO DAY RN.
--- NOTE | 2025-03-05 09:02 | NUR ---
ROUNDING COMPLETED ON PT AT 0730 AFTER REPORT AND PT SLEEPING WITH FRIEND AT BEDSIDE. ROUNDED AGAIN AT 0900 AND PT IS NOT IN ROOM AND DISCONNECTED FROM CONTINUIOUS BI OX. PRESS ASSISTANT AND FEEDERSHARON MADE AWARE.
[2025-03-05] MEDS ORDERED: ALBU90OI INH (09:59)
--- NOTE | 2025-03-05 11:30 | NUR ---
SPOKE WITH RN AT [facility] AT THIS TIME CONCERNING IR CONSULT WITH DR. MURDOCK. [facility] RN TO REACH OUT TO DR. MURDOCK ABOUT UROLOGY CONSULT AND STATUS. PT NPO AT THIS TIME.
[2025-03-05 12:06] LABS: Vancomycin, Trough 14.8 ug/mL (5.0-10.0)
--- NOTE | 2025-03-05 12:47 | NUR ---
DR. MURDOCK IN ROOM AT THIS TIME
[2025-03-05] MEDS ORDERED: NS 250 ML IV ONE (14:15)
[2025-03-05] MEDS ORDERED: Midazolam HCl 1MG / ML 2ML Vial ONE ×2 (14:22→14:53)
[2025-03-05] MEDS ORDERED: FentaNYL Citrate 50 MCG/ML 2 ML Injection ONE ×2 (14:22→14:53)
[2025-03-05] MEDS ORDERED: NS 1,000 ML IV ONE (14:22)
--- NOTE | 2025-03-05 14:29 | NUR ---
PT TO OR AT ABOUT 1415
--- NOTE | 2025-03-05 16:22 | NUR ---
TRANSFER: REPORT PASSED TO [facility]ER. PT ARRIVED TO [facility] AT ABOUT 1615, PT FAMILY AWARE.
[2025-03-05] MEDS ORDERED: Morphine Sulfate 4 MG/1 ML Injection IV PRN (17:00)
--- NOTE | 2025-03-05 17:25 | NUR ---
TRANSFER FROM [facility] TO PCU 13 POST SURGERY. NEW NEPHROSTOMY PLACED. PATIENT ARRIVES VIA WHEEL CHAIR MOANING IN PAIN. ONE PERSON ASSIST TO BED. POST OP VITAL SIGNS IN PROGRESS WITH ELEVATED BLOOD PRESSURE. DR. BARROW CALLED TO UPDATE ON PAIN AND BLOOD PRESSURE. UPDATED ORDERS FOR IV MORPHINE. 2-4MG IV Q4 PRN PAIN. LEFT NEPHROSTOMY WITH BLOOD TINGED URINE. UROSTOMY WITH YELLOW URINE. PAIN LOCATED IN LEFT LOWER QUARDANT AND LEFT LOWER BACK. MEDICATED PER EMAR. BLOOD PRESSURE REMAINS ELEVATED. FIANCE AT BEDSIDE. CALL LIGHT IN REACH.
[2025-03-05] MEDS ORDERED: FentaNYL Citrate 50 MCG/ML 2 ML Injection IV PRN (17:45)
[2025-03-05] MEDS ORDERED: Ketorolac Tromethamine 30mg Vial IV ONE (17:45)
--- NOTE | 2025-03-05 18:31 | NUR ---
PAIN CONTINUES TO BE 10/10. DR. BARROW CALLED AGAIN BY THIS RN TO UPDATE ON CONTINUED PAIN DESPITE MORPHINE ADMINISTRATION AND PATIENT HR DROPPING TO 39. PAIN MEDICATIONS CHANGED TO FENTANYL AND TORDAL. PAIN IMPROVED AND PATIENT ABLE TO REST. BLOOD PRESSURE IMPROVED, SEE CHARTED VITALS. LEFT NEPHROSTOMY CONTINUES TO PUT OUT BLOOD TINGED URINE. SITE/DRESSING C/D/I. FIANCE AT BEDSIDE. PATIENT TOLERATING FOOD AND DRINK. CALL LIGHT IN REACH. DENIES NEEDS.
--- NOTE | 2025-03-05 19:41 | NUR ---
ASSUMPTION OF CARE ASSUMED PT'S CARE AT 1900,BEDSIDE REPORT COMPLETED.PT AWAKE RESTING IN BED,GIRLFRIEND AT BEDSIDE ASSISTING PT EAT.PLAN OF CARE REVIEWED.PT REPORTS PAIN AT 12/18.PT INFORMED THAT NO PRN PAIN MED DUE AT THIS TIME.PT STATES THAT HE WILL RELAX AND MAYBE THE PAIN WILL SUBSIDE.PT DENIES SOB,DENIES NEEDS.CALL LIGHT AND PT'S ITEMS WITHIN REACH.MONITORING ONGOING PER CAREPLAN.
[2025-03-06] VITALS (9 sets, daily range): BP systolic 133–158; BP diastolic 70–126
--- NOTE | 2025-03-06 06:22 | NUR ---
PT MONITORED DURING THE SHIFT,GIRLFRIEND AT BEDSIDE.PT SLEPT ON/OFF,PRN PAIN MEDS GIVEN ORDERED PER PT'S REQUEST.PT UP TO THE TOILET TWICE BUT DID NOT HAVE A BOWEL MOVEMENT,PASSED FLATUS.URINE FROM UROSTOMY CLEAR YELLOW THIS MORNING,URINE FROM LEFT NEPHROSTOMY STILL BLOOD TINGED.PT SLEEPING AT THIS TIME,EASILY AROUSABLE.MONITORING ONGOING PER CAREPLAN.CALL LIGHT AND PT'S ITEMS WITHIN REACH.
--- NOTE | 2025-03-06 08:20 | NUR ---
Pt in pain left flank where nephrostomy in place, 02/17. Noted by PAROLE OFFICER that tubing had become disconnected and tegederm dressing had partially rolled off. Pt medicated with 50 mcg fentanyl IV per prn orders. Dressing removed and area cleansed, new dressing with nephrostomy securement device placed, and double drain sponges due to serous fluid noted draining from insertion site. [place] tinged clear fluid noted in drainage bag. Pt is still recovering from the pain.
[2025-03-06] MEDS ORDERED: NS 250 ML IV PRN (12:05)
[2025-03-06] MEDS ORDERED: Polyethylene Glycol 3350 17 gm PO PRN (12:05)
[2025-03-06 12:56] LABS: Creatinine, Blood 0.78 mg/dL (0.60-1.20); Vancomycin, Trough 12.7 ug/mL (5.0-10.0)
--- NOTE | 2025-03-06 17:37 | NUR ---
Pt's pain has been well managed with fentanyl 50 mcg given about every 2-4 hours during today's shift. He was well enough to walk outside of the unit twice accompanyied by his or his friend, using the walker for assistance. Bowel care was started, still no BM but states passing a lot of gas. Good appetite, eating and drinking well today. Nephrostomy site is clean dry and intact this evening. Vital signs stable, Changed from PCU to medical status today.
[2025-03-06] MEDS ORDERED: Magnesium Hydroxide Conc 10 ML UDC PO ONE (21:45)
[2025-03-06] MEDS ORDERED: Polyethylene Glycol 3350 17 gm PO ONE (21:45)
[2025-03-07 03:54] VITALS: BP 135/70
--- NOTE | 2025-03-07 05:46 | NUR ---
SHIFT SUMMARY THIS RN ASSUMED CARE OF PATIENT AT 1900. PT A&O X4. ABLE TO MAKE NEEDS KNOWN. MEDICATING PER EMAR FOR PAIN EVERY 2-4HRS PRN. LEFT NEPHROSTOMY WITH PINK TINGED URINE. UROSTOMY WITH YELLOW URINE. DRESSING ON NEPHROSTOMY WITH SMALL AMOUNT OF DRAINAGE ON GAUZE, OTHERWISE INTACT. PT REPORTED THAT HE WANTED TO TAKE A WALK OUTSIDE AROUND 2100 LAST NIGHT. THIS RN EDUCATED PT REGARDING THE HOSPITAL LOCKING THE DOORS AT NIGHT. PT REMAINED IN ROOM. CALL PLACED TO MD SAMUEL FOR MORE BOWEL CARE MEDS FOR PATIENT. ORDER FOR MIRALAX AND MILK OF MAG RECEIVED AND GIVEN PER EMAR. PT CONTINUES TO PASS FREQUENT GAS BUT DENIES HAVING BM DURING THIS SHIFT. BP STABLE. NO TELE. HR 70S. AFEBRILE. IND TO BATHROOM. PT S FIANCE STAYING IN ROOM. THIS RN HAD TO SPEAK TO HER ABOUT BEING RESPECTFUL TO STAFF AND NOT INTERFERING WITH CARE. THE CUSTOMER ENGINEERING SPECIALIST SPOKE TO THIS RN ABOUT THE FIANCE BEING VERBALLY AGGRESSIVE ABOUT NEEDING TO DRAW BLOOD ON THE PATIENT, DESPITE THE PATIENT BEING AGREEABLE TO LABS BEING DRAWN. THE FIANCE HAS LEFT THE ROOM AT THIS TIME. CUSTOMER ENGINEERING SPECIALIST WILL BE BY LATER TO REATTEMPT DRAW. BED IN LOWEST POSITION AND CALL LIGHT WITHIN REACH. THIS RN WILL REPORT TO ONCOMING DAYSHIFT RN.
[2025-03-07 06:13] LABS: BASOPHILS ABSOLUTE AUTO 0.06 K/mm3 (0.00-0.23); BASOPHILS PERCENT AUTO 1 % (0-2); EOSINOPHILS ABSOLUTE AUTO 0.35 K/mm3 (0.00-0.68); EOSINOPHILS PERCENT AUTO 4 % (0-6); Hematocrit 41.4 % (37.0-53.0); Hemoglobin 13.9 g/dL (13.5-17.5); IMMATURE GRAN ABSOLUTE AUTO 0.02 K/mm3 (0.00-0.10); IMMATURE GRAN PERCENT AUTO 0 % (0-1); LYMPHOCYTES ABSOLUTE AUTO 2.41 K/mm3 (0.84-5.20); LYMPHOCYTES PERCENT AUTO 29 % (21-46); MONOCYTES ABSOLUTE AUTO 0.51 K/mm3 (0.16-1.47); MONOCYTES PERCENT AUTO 6 % (4-13); Mean Corpuscular HGB Conc 33.6 g/dL (31.5-36.5); Mean Corpuscular Volume 94 fL (80-100); NEUTROPHILS ABSOLUTE AUTO 4.90 K/mm3 (1.96-9.15); NEUTROPHILS PERCENT AUTO 60 % (41-73); NRBC ABSOLUTE 0.00 K/mm3 (0.00-0.02); NRBC Auto 0.0 /100 WBC (0.0-0.2); Platelet Count 176 K/mm3 (150-400); RDW Coefficient Variation 12.5 % (11.7-14.2); RDW Standard Deviation 43.6 fL (35.1-46.3)
[2025-03-07 06:33] LABS: Anion Gap 7.0 mmol/L (3-11); Blood Urea Nitrogen 9.0 mg/dL (8-24); CO2, Blood 28.0 mmol/L (21-32); Calcium, Blood 8.7 mg/dL (8.5-10.1); Chloride, Blood 104.0 mmol/L (98-108); Creatinine, Blood 0.81 mg/dL (0.60-1.20); Glucose, Blood 96.0 mg/dL (70-99); Potassium, Blood 4.0 mmol/L (3.5-5.5); Sodium, Blood 135.0 mmol/L (136-145)
[2025-03-07 12:10] VITALS: BP 132/88
--- NOTE | 2025-03-07 13:32 | NUR ---
TRANSFER NOTE TRANSFER OF CARE GIVEN TO PCU NURSE, REPORT GIVEN TO RAMIRO HOYT.
[2025-03-07 16:04] VITALS: BP 140/76
--- NOTE | 2025-03-07 17:07 | NUR ---
SHIFT SUMMARY: PT A/O X4, ABLE TO MAKE NEEDS KNOWN. PT ON ROOM AIR, SATS >95. PT DENIES SOB. PT NSR 60-90s, DENIES CHEST PAIN/PRESSURE. PTs NEPHROSTOMY SITE IS C/D/I, OUTPUT IS FREQUENT, YELLOW/PINK-TINGED URINE. PT STATES LEFT SIDED FLANK PAIN, MEDICATED PER EMAR. PT IS A SBA WITH FWW, AND GOES FOR WALKS FREQUENTLY THROUGHOUT DAY. PT STILL UNABLE TO HAVE A BOWEL MOVEMENT WITH ACTIVE BOWEL CARE AND MOVEMENT. PT CURRENTLY WALKING SEGAL WITH S/O. NO NEEDS AT THIS TIME.
[2025-03-07 20:12] VITALS: BP 135/76
[2025-03-08 00:31] VITALS: BP 146/79
--- NOTE | 2025-03-08 00:38 | NUR ---
TRANSFER PT A&OX4, MAKES NEEDS KNOWN. UPDATED PT AND SPOUSE ABOUT TRANSFERRING TO ROOM 333. REPORT GIVEN TO MEDICAL FLOOR RN. PT TRANSFERRED VIA BED WITH ALL PERSONAL BELONGINGS AND SPOUSE TO MED 333. CALL LIGHT IN REACH.
[2025-03-08 03:40] VITALS: BP 153/85
--- NOTE | 2025-03-08 04:54 | NUR ---
SUMMARY: PT TRANSFERRED TO FLOOR AROUND 0030. PT AOX4, RA, UP SBA. PTS UROSTOMY AND NEPHROSTOMY DRAINING APPROPRIATELY. IV INFILTRATED WITH VANCO RUNNING. BREAK NURSE PLACED NEW IV AND REMOVED OLD ONE. FINISHED VANCO DOSE WITH NEW IV. ARM ELEVATED AND HEAT APPLIED.
[2025-03-08 08:08] VITALS: BP 134/69
[2025-03-08 14:42] VITALS: BP 147/79
--- NOTE | 2025-03-08 18:33 | NUR ---
SHIFT SUMMARY PT CONT LEVEL OF CARE. PT CONT TO REMAIN A&OX4 AND IND IN ROOM. PLAN IS TO GO TO SNF WHILE NEPHROSTOMY TUBE REMIANS IN PLACE D/T PT LIVING SITUTATION. AWAITING PLACEMENT.
[2025-03-08 19:33] VITALS: BP 148/79
[2025-03-08 20:10] LABS: Vancomycin, Trough 13.6 ug/mL (5.0-10.0)
[2025-03-09 05:09] VITALS: BP 153/86
--- NOTE | 2025-03-09 06:31 | NUR ---
SHIFT SUMMARY: Pt is admitted for obstructive uropathy and is a full code. Is alert and able to make needs known. ADLs have been IND. on ISO for MRSA in the urine. Pain has been managed with PRN medications. IV to left forearm is patent with dressing that is CDI. urostemy in place to right lower ABD and draining clear alex urine. Nephostemy in place to left flank draining crimson clear urine with dressing that is CDI.
[2025-03-09 07:22] VITALS: BP 144/79
[2025-03-09 15:38] VITALS: BP 151/89
--- NOTE | 2025-03-09 16:53 | NUR ---
SHIFT SUMMARY PATIENT HAS BEEN A&0X4 THROUGHOUT THE SHIFT, URINE COLOR HAS GONE FROM PINK AT THE START OF THE DAY TO A YELLOW. STILL SOME PARTICULATES IN THE NEPHROSTOMY BAG. INDEPENDENT AND WALKING WITH SIGNIFICANT OTHER IN HALLWAYS, NO DISTRESS NOTED, PATIENT ABLE TO MAKE NEEDS KNOWN.
--- NOTE | 2025-03-09 18:17 | NUR ---
THIS INTERNATIONAL NURSE HAS REVIEWED AND AGREES WITH ALL NOTES AND ASSESSMENTS BY RAMIRO VILLEGAS.
[2025-03-09 20:03] VITALS: BP 145/79
[2025-03-10 04:06] VITALS: BP 150/88
[2025-03-10 07:35] VITALS: BP 149/77
[2025-03-10] MEDS ORDERED: NAPR500 PO (13:47)
--- NOTE | 2025-03-10 15:37 | NUR ---
DISCHARGE EDUCATED PATIENT ON DISCHARGE PLANS AND EDUCATION . GIVEN MATERIALS TO KEEP THE BANDAGES CLEAN. IV WAS REMOVED. WENT OVER THE ROOM WITH PATIENT TO ENSURE NO BELONGINGS WERE LEFT. PATIENT WAS ALERT AND ORIENTED IN NO DISTRESS. PATIENT REFUSED WHEELCHAIR ESCORT AND WALKED TO THE FRONT DOOR WITH HIS PARTNER. DID NOT WAIT FOR A TAXI TO BE CALLED.
== END 2025-03-10 15:05 | disposition home or self-care (01) | DRG 659 ==
LOC: ER 17:44 → SURS 22:39 → MEDS 22:39 → SURS 23:32 → PCU 03-05 16:15 → MEDS 03-08 00:34
PROVIDERS: Family Medicine; Internal Medicine; Student in an Organized Health Care Education/Training Program; ADMIT Student in an Organized Health Care Education/Training Program
PROC: 3E03329 Introduction of Other Anti-infective into Peripheral Vein, Percutaneous Approach (ICD-10-PCS; principal; 2025-03-03)
PROC: 0T773ZZ Dilation of Left Ureter, Percutaneous Approach (ICD-10-PCS; 2025-03-05)
PROC: 0T9430Z Drainage of Left Kidney Pelvis with Drainage Device, Percutaneous Approach (ICD-10-PCS; 2025-03-05)
DX: T83.85XA Stenosis due to genitourinary prosthetic devices, implants and grafts, initial encounter (principal); A41.9 Sepsis, unspecified organism; N13.6 Pyonephrosis; N17.9 Acute kidney failure, unspecified; Z59.02 Unsheltered homelessness; J45.909 Unspecified asthma, uncomplicated; I10 Essential (primary) hypertension; F12.90 Cannabis use, unspecified, uncomplicated; F17.210 Nicotine dependence, cigarettes, uncomplicated; Z85.51 Personal history of malignant neoplasm of bladder; Z90.6 Acquired absence of other parts of urinary tract; Z90.79 Acquired absence of other genital organ(s); Z93.6 Other artificial openings of urinary tract status; Z86.14 Personal history of Methicillin resistant Staphylococcus aureus infection; Z88.8 Allergy status to other drugs, medicaments and biological substances; Y83.2 Surgical operation with anastomosis, bypass or graft as the cause of abnormal reaction of the patient, or of later complication, without mention of misadventure at the time of the procedure
CPT/HCPCS: 36415; 74177; 76937; 80048; 80053; 80202; 81001; 82565; 85025; 87040; 87086; 94762; 96365-59; 96375; 99152; 99153; 99285-25; A9270; C1725; C1729; C1769; C1887; C1894; J0696; J1885; J2250; J2270; J3010; J3373; J7030; J7050; Q9967

== ENCOUNTER 2025-03-15 18:56 | Emergency (ER) | payer OTHER ==
[~2025-03-15] VITALS: Ht 167.6 cm; Wt 59.0 kg
[~2025-03-15 18:56] MED LIST changes: +NAPR500 PO
[2025-03-15] MEDS ORDERED: HYDROmorphone HCl/Pf 1MG SYR IV ONE (23:45)
[2025-03-15 23:52] LABS: BASOPHILS ABSOLUTE AUTO 0.05 K/mm3 (0.00-0.23); BASOPHILS PERCENT AUTO 1 % (0-2); EOSINOPHILS ABSOLUTE AUTO 0.37 K/mm3 (0.00-0.68); EOSINOPHILS PERCENT AUTO 4 % (0-6); Hematocrit 41.1 % (37.0-53.0); Hemoglobin 13.3 g/dL (13.5-17.5); IMMATURE GRAN ABSOLUTE AUTO 0.05 K/mm3 (0.00-0.10); IMMATURE GRAN PERCENT AUTO 1 % (0-1); LYMPHOCYTES ABSOLUTE AUTO 1.78 K/mm3 (0.84-5.20); LYMPHOCYTES PERCENT AUTO 17 % (21-46); MONOCYTES ABSOLUTE AUTO 0.63 K/mm3 (0.16-1.47); MONOCYTES PERCENT AUTO 6 % (4-13); Mean Corpuscular HGB Conc 32.4 g/dL (31.5-36.5); Mean Corpuscular Volume 98 fL (80-100); NEUTROPHILS ABSOLUTE AUTO 7.66 K/mm3 (1.96-9.15); NEUTROPHILS PERCENT AUTO 73 % (41-73); NRBC ABSOLUTE 0.00 K/mm3 (0.00-0.02); NRBC Auto 0.0 /100 WBC (0.0-0.2); Platelet Count 232 K/mm3 (150-400); RDW Coefficient Variation 12.6 % (11.7-14.2); RDW Standard Deviation 45.0 fL (35.1-46.3)
[2025-03-16 00:05] LABS: Alanine Aminotransfer (ALT/SGP 21.0 U/L (12-78); Albumin, Blood 3.2 g/dL (3.4-5.0); Albumin/Globulin Ratio 0.7 (0.8-1.8); Anion Gap 6.0 mmol/L (3-11); Aspartate Aminotrans (AST/SGOT 29.0 U/L (12-37); Bilirubin, Total 0.2 mg/dL (0.1-1.0); Blood Urea Nitrogen 16.0 mg/dL (8-24); CO2, Blood 27.0 mmol/L (21-32); Calcium, Blood 9.0 mg/dL (8.5-10.1); Chloride, Blood 108.0 mmol/L (98-108); Creatinine, Blood 1.04 mg/dL (0.60-1.20); Globulin, Blood 4.8 g/dL (2.2-4.0); Glucose, Blood 109.0 mg/dL (70-99); Potassium, Blood 4.4 mmol/L (3.5-5.5); Sodium, Blood 137.0 mmol/L (136-145); Total Protein, Blood 8.0 g/dL (6.4-8.2)
[2025-03-16 00:15] LABS: Source, Urine Nephrostomy
[2025-03-16] MEDS ORDERED: HYDROmorphone HCl/Pf 1MG SYR IV ONE (00:15)
[2025-03-16 00:35] LABS: Bilirubin, Urine Neg (Neg); Glucose Qualitative, Urine Neg (Neg); Ketones, Urine Neg (Neg); Leukocyte Esterase, Urine 2+ (Neg); Protein, Urine 3+ (Neg); Specific Gravity, Urine 1.005 (1.003-1.022); Urobilinogen, Urine NORM (Normal)
[2025-03-16 00:43] VITALS: BP 163/91
[2025-03-16 00:45] LABS: Color, Urine Pale Yellow (P-Yellow)
[2025-03-16 00:46] LABS: Red Blood Cells, Urine 50-100 /hpf (0-2); White Blood Cells, Urine 0-2 /hpf (0-5)
[2025-03-16] MEDS ORDERED: OXAYDO5 M1 PO (02:08)
[2025-03-16] MEDS ORDERED: ONDA4ODT MM (02:08)
== END 2025-03-16 02:54 | disposition home or self-care (01) ==
LOC: ER 18:56
PROVIDERS: Emergency Medicine
DX: R10.9 Unspecified abdominal pain (principal); Z43.6 Encounter for attention to other artificial openings of urinary tract; D64.9 Anemia, unspecified
CPT/HCPCS: 80053; 81001; 83605; 85025; 87077; 87086; 87186; 96374; 99284; J1171

== ENCOUNTER 2025-03-29 14:50 | Emergency (ER) | payer OTHER ==
[~2025-03-29] VITALS: Ht 167.6 cm; Wt 63.5 kg
[~2025-03-29 14:50] MED LIST changes: +OXAYDO5 M1 PO
[2025-03-29 15:11] VITALS: BP 155/106
[2025-03-29 15:35] LABS: BASOPHILS ABSOLUTE AUTO 0.06 K/mm3 (0.00-0.23); BASOPHILS PERCENT AUTO 1 % (0-2); EOSINOPHILS ABSOLUTE AUTO 0.61 K/mm3 (0.00-0.68); EOSINOPHILS PERCENT AUTO 7 % (0-6); Hematocrit 42.7 % (37.0-53.0); Hemoglobin 14.3 g/dL (13.5-17.5); IMMATURE GRAN ABSOLUTE AUTO 0.02 K/mm3 (0.00-0.10); IMMATURE GRAN PERCENT AUTO 0 % (0-1); LYMPHOCYTES ABSOLUTE AUTO 2.04 K/mm3 (0.84-5.20); LYMPHOCYTES PERCENT AUTO 24 % (21-46); MONOCYTES ABSOLUTE AUTO 0.64 K/mm3 (0.16-1.47); MONOCYTES PERCENT AUTO 7 % (4-13); Mean Corpuscular HGB Conc 33.5 g/dL (31.5-36.5); Mean Corpuscular Volume 96 fL (80-100); NEUTROPHILS ABSOLUTE AUTO 5.32 K/mm3 (1.96-9.15); NEUTROPHILS PERCENT AUTO 61 % (41-73); NRBC ABSOLUTE 0.00 K/mm3 (0.00-0.02); NRBC Auto 0.0 /100 WBC (0.0-0.2); Platelet Count 277 K/mm3 (150-400); RDW Coefficient Variation 12.3 % (11.7-14.2); RDW Standard Deviation 43.8 fL (35.1-46.3)
[2025-03-29 15:55] LABS: Alanine Aminotransfer (ALT/SGP 58.0 U/L (12-78); Albumin, Blood 3.7 g/dL (3.4-5.0); Albumin/Globulin Ratio 0.6 (0.8-1.8); Anion Gap 8.0 mmol/L (3-11); Aspartate Aminotrans (AST/SGOT 57.0 U/L (12-37); Bilirubin, Total 0.6 mg/dL (0.1-1.0); Blood Urea Nitrogen 22.0 mg/dL (8-24); CO2, Blood 25.0 mmol/L (21-32); Calcium, Blood 9.4 mg/dL (8.5-10.1); Chloride, Blood 104.0 mmol/L (98-108); Creatinine, Blood 1.38 mg/dL (0.60-1.20); Globulin, Blood 5.7 g/dL (2.2-4.0); Glucose, Blood 159.0 mg/dL (70-99); Potassium, Blood 4.0 mmol/L (3.5-5.5); Sodium, Blood 133.0 mmol/L (136-145); Total Protein, Blood 9.4 g/dL (6.4-8.2)
== END 2025-03-29 18:29 | disposition home or self-care (01) ==
LOC: ER 14:50
PROVIDERS: Emergency Medicine
DX: T83.512A Infection and inflammatory reaction due to nephrostomy catheter, initial encounter (principal); L03.311 Cellulitis of abdominal wall; J45.909 Unspecified asthma, uncomplicated; F17.210 Nicotine dependence, cigarettes, uncomplicated; Z88.5 Allergy status to narcotic agent
CPT/HCPCS: 76770; 80053; 85025; 99284-25

== ENCOUNTER 2025-04-02 18:00 | Inpatient (IN) | payer OTHER ==
[~2025-04-02] VITALS: Ht 167.6 cm; Wt 64.0 kg
[2025-04-02 19:22] LABS: BASOPHILS ABSOLUTE AUTO 0.08 K/mm3 (0.00-0.23); BASOPHILS PERCENT AUTO 1 % (0-2); EOSINOPHILS ABSOLUTE AUTO 0.56 K/mm3 (0.00-0.68); EOSINOPHILS PERCENT AUTO 6 % (0-6); Hematocrit 42.3 % (37.0-53.0); Hemoglobin 14.6 g/dL (13.5-17.5); IMMATURE GRAN ABSOLUTE AUTO 0.03 K/mm3 (0.00-0.10); IMMATURE GRAN PERCENT AUTO 0 % (0-1); LYMPHOCYTES ABSOLUTE AUTO 2.01 K/mm3 (0.84-5.20); LYMPHOCYTES PERCENT AUTO 21 % (21-46); MONOCYTES ABSOLUTE AUTO 0.62 K/mm3 (0.16-1.47); MONOCYTES PERCENT AUTO 7 % (4-13); Mean Corpuscular HGB Conc 34.5 g/dL (31.5-36.5); Mean Corpuscular Volume 96 fL (80-100); NEUTROPHILS ABSOLUTE AUTO 6.25 K/mm3 (1.96-9.15); NEUTROPHILS PERCENT AUTO 66 % (41-73); NRBC ABSOLUTE 0.00 K/mm3 (0.00-0.02); NRBC Auto 0.0 /100 WBC (0.0-0.2); Platelet Count 246 K/mm3 (150-400); RDW Coefficient Variation 12.4 % (11.7-14.2); RDW Standard Deviation 43.7 fL (35.1-46.3)
[2025-04-02 19:47] LABS: Alanine Aminotransfer (ALT/SGP 76.0 U/L (12-78); Albumin, Blood 3.5 g/dL (3.4-5.0); Albumin/Globulin Ratio 0.6 (0.8-1.8); Anion Gap 7.0 mmol/L (3-11); Aspartate Aminotrans (AST/SGOT 88.0 U/L (12-37); Bilirubin, Total 0.5 mg/dL (0.1-1.0); Blood Urea Nitrogen 13.0 mg/dL (8-24); CO2, Blood 24.0 mmol/L (21-32); Calcium, Blood 9.5 mg/dL (8.5-10.1); Chloride, Blood 108.0 mmol/L (98-108); Creatinine, Blood 1.17 mg/dL (0.60-1.20); Globulin, Blood 5.6 g/dL (2.2-4.0); Glucose, Blood 115.0 mg/dL (70-99); Potassium, Blood 4.4 mmol/L (3.5-5.5); Sodium, Blood 135.0 mmol/L (136-145); Total Protein, Blood 9.1 g/dL (6.4-8.2)
[2025-04-02 23:04] LABS: Source, Urine Urostomy Bag
[2025-04-02 23:14] LABS: Bilirubin, Urine Neg (Neg); Glucose Qualitative, Urine Neg (Neg); Ketones, Urine Neg (Neg); Leukocyte Esterase, Urine 3+ (Neg); Protein, Urine 3+ (Neg); Specific Gravity, Urine 1.010 (1.003-1.022); Urobilinogen, Urine NORM (Normal)
[2025-04-02 23:32] LABS: Color, Urine Yellow (P-Yellow)
[2025-04-02 23:33] LABS: Red Blood Cells, Urine TNTC /hpf (0-2); White Blood Cells, Urine 50-100 /hpf (0-5)
[2025-04-02] MEDS ORDERED: CefTRIAXone Sodium 1,000 MG in NS 100 ML IV ONE (23:50)
[2025-04-03] MEDS ORDERED: Ondansetron HCl 2 MG / ML 2ML Vial IV PRN (00:35)
[2025-04-03] MEDS ORDERED: FLU VACC TS2025-26(6MOS UP)/PF 45 MCG/0.5 ML SYRINGE IM SCH (00:35)
[2025-04-03] MEDS ORDERED: NS 1,000 ML IV SCH ×2 (00:35→17:00)
[2025-04-03 02:38] VITALS: BP 156/91
[2025-04-03] MEDS ORDERED: FentaNYL Citrate 50 MCG/ML 2 ML Injection IV PRN (02:40)
--- NOTE | 2025-04-03 02:58 | NUR ---
PT ARRIVED BY NEHEMIAS FROM ED AT 0226. PT STANDBY ASSIST TO OUR BED. PT WEIGHT 60 KG. TELE PLACED BY THIS RN, SINUS YUE 55 PER VENKATA OLIVEROS. PT ASKED FOR PAIN MEDICATION. CALLED DR ANNA AND GOT ORDER FOR FENTANYL 25-50 Q 4 PRN FOR PAIN. PT GIVEN 25 OF FENTANYL AT THIS TIME. PT LYING IN BED WITH INSTRUCTIONS TO CALL USING HIS CALL LIGHT IF HE SHOULD NEED ANYTHING. PT IS UPSET THAT HE WAS TOLD IN ED THAT HE COULD HAVE SOMETHING TO EAT ONCE HE CAME UP TO OUR FLOOR AND DR FLORES HAS HIM NPO. REPORT TO BE GIVEN TO PRIMARY RN UPON HER RETURN FROM HER DINNER BREAK.
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
[2025-04-03 08:05] VITALS: BP 133/79
[2025-04-03 08:07] LABS: BASOPHILS ABSOLUTE AUTO 0.08 K/mm3 (0.00-0.23); BASOPHILS PERCENT AUTO 1 % (0-2); EOSINOPHILS ABSOLUTE AUTO 0.76 K/mm3 (0.00-0.68); EOSINOPHILS PERCENT AUTO 11 % (0-6); Hematocrit 39.3 % (37.0-53.0); Hemoglobin 13.2 g/dL (13.5-17.5); IMMATURE GRAN ABSOLUTE AUTO 0.02 K/mm3 (0.00-0.10); IMMATURE GRAN PERCENT AUTO 0 % (0-1); LYMPHOCYTES ABSOLUTE AUTO 2.08 K/mm3 (0.84-5.20); LYMPHOCYTES PERCENT AUTO 30 % (21-46); MONOCYTES ABSOLUTE AUTO 0.53 K/mm3 (0.16-1.47); MONOCYTES PERCENT AUTO 8 % (4-13); Mean Corpuscular HGB Conc 33.6 g/dL (31.5-36.5); Mean Corpuscular Volume 96 fL (80-100); NEUTROPHILS ABSOLUTE AUTO 3.48 K/mm3 (1.96-9.15); NEUTROPHILS PERCENT AUTO 50 % (41-73); NRBC ABSOLUTE 0.00 K/mm3 (0.00-0.02); NRBC Auto 0.0 /100 WBC (0.0-0.2); Platelet Count 192 K/mm3 (150-400); RDW Coefficient Variation 12.4 % (11.7-14.2); RDW Standard Deviation 43.8 fL (35.1-46.3)
[2025-04-03] MEDS ORDERED: Enoxaparin 40 MG/0.4 ML SYR SC SCH (09:00)
[2025-04-03 09:04] LABS: Alanine Aminotransfer (ALT/SGP 66.0 U/L (12-78); Albumin, Blood 3.0 g/dL (3.4-5.0); Albumin/Globulin Ratio 0.6 (0.8-1.8); Anion Gap 7.0 mmol/L (3-11); Aspartate Aminotrans (AST/SGOT 68.0 U/L (12-37); Bilirubin, Total 0.5 mg/dL (0.1-1.0); Blood Urea Nitrogen 10.0 mg/dL (8-24); CO2, Blood 26.0 mmol/L (21-32); Calcium, Blood 8.8 mg/dL (8.5-10.1); Chloride, Blood 108.0 mmol/L (98-108); Creatinine, Blood 0.98 mg/dL (0.60-1.20); Globulin, Blood 4.7 g/dL (2.2-4.0); Glucose, Blood 91.0 mg/dL (70-99); Potassium, Blood 3.6 mmol/L (3.5-5.5); Sodium, Blood 137.0 mmol/L (136-145); Total Protein, Blood 7.7 g/dL (6.4-8.2)
[2025-04-03 11:53] VITALS: BP 132/84
[2025-04-03] MEDS ORDERED: Vancomycin (Pharmacy Consult) IV SCH (13:55)
[2025-04-03 16:37] VITALS: BP 142/82
--- NOTE | 2025-04-03 18:03 | NUR ---
End of shift summary: Patient is alert and oriented x4; pleasant and cooperative with care. Patient with continued c/o pain to groin and left flank and medicated per EMAR. Patient denies CP or pressure, SOB, N/V/D today; abnormal EKG and PCP aware. Patient utilizing call light appropriately; call light within reach and bed in lowest position. Will continue to monitor until next shift nurse arrives and report is given.
[2025-04-03] MEDS ORDERED: NS 250 ML IV PRN (20:45)
[2025-04-03 20:57] VITALS: BP 156/94
[2025-04-03 23:46] VITALS: BP 148/81
--- NOTE | 2025-04-04 04:32 | NUR ---
SHIFT SUMMARY NOC PT A/O X 4. PLEASANT AND COOPERATIVE WITH CARE. VSS. PT HS L NEPHROSTOMY IN PLACE, DRESSING IS C/D/I. L FLANK PAIN BEING MANAGED PER EMAR. PT RECEIVING IV ABX PER EMAR. UROSTOMY IN RLQ THAT PT SELF MANAGES. PT ON TELE WITH JUNCTIONAL RHYTHM IN HIGH 50'S. REPEAT EKG SHOWED NO NEW FINDINGS AND IS ON FRONT OF CHART. PT CURRENTLY RESTING WITH BED IN LOWEST POSITION, AND CALL LIGHT WITHIN REACH.
[2025-04-04 04:44] VITALS: BP 140/89
[2025-04-04] MEDS ORDERED: CefTRIAXone Sodium 1,000 MG in NS 100 ML IV SCH (06:00)
[2025-04-04 07:13] LABS: Alanine Aminotransfer (ALT/SGP 70.0 U/L (12-78); Albumin, Blood 2.9 g/dL (3.4-5.0); Albumin/Globulin Ratio 0.6 (0.8-1.8); Anion Gap 6.0 mmol/L (3-11); Aspartate Aminotrans (AST/SGOT 82.0 U/L (12-37); Bilirubin, Total 0.3 mg/dL (0.1-1.0); Blood Urea Nitrogen 12.0 mg/dL (8-24); CO2, Blood 25.0 mmol/L (21-32); Calcium, Blood 8.3 mg/dL (8.5-10.1); Chloride, Blood 108.0 mmol/L (98-108); Creatinine, Blood 0.92 mg/dL (0.60-1.20); Globulin, Blood 4.5 g/dL (2.2-4.0); Glucose, Blood 109.0 mg/dL (70-99); Potassium, Blood 4.4 mmol/L (3.5-5.5); Sodium, Blood 135.0 mmol/L (136-145); Total Protein, Blood 7.4 g/dL (6.4-8.2)
[2025-04-04 07:28] VITALS: BP 154/88
[2025-04-04 08:43] LABS: BASOPHILS ABSOLUTE AUTO 0.06 K/mm3 (0.00-0.23); BASOPHILS PERCENT AUTO 1 % (0-2); EOSINOPHILS ABSOLUTE AUTO 0.76 K/mm3 (0.00-0.68); EOSINOPHILS PERCENT AUTO 12 % (0-6); Hematocrit 41.7 % (37.0-53.0); Hemoglobin 13.7 g/dL (13.5-17.5); IMMATURE GRAN ABSOLUTE AUTO 0.01 K/mm3 (0.00-0.10); IMMATURE GRAN PERCENT AUTO 0 % (0-1); LYMPHOCYTES ABSOLUTE AUTO 1.75 K/mm3 (0.84-5.20); LYMPHOCYTES PERCENT AUTO 27 % (21-46); MONOCYTES ABSOLUTE AUTO 0.52 K/mm3 (0.16-1.47); MONOCYTES PERCENT AUTO 8 % (4-13); Mean Corpuscular HGB Conc 32.9 g/dL (31.5-36.5); Mean Corpuscular Volume 97 fL (80-100); NEUTROPHILS ABSOLUTE AUTO 3.35 K/mm3 (1.96-9.15); NEUTROPHILS PERCENT AUTO 52 % (41-73); NRBC ABSOLUTE 0.00 K/mm3 (0.00-0.02); NRBC Auto 0.0 /100 WBC (0.0-0.2); Platelet Count 181 K/mm3 (150-400); RDW Coefficient Variation 12.4 % (11.7-14.2); RDW Standard Deviation 44.7 fL (35.1-46.3)
--- NOTE | 2025-04-04 12:17 | NUR ---
1200: Patient requested to go for a walk with his spouse. This RN instructed that he could go for a walk on this floor only and he stated that he would be going outside. Again, explained that he needed to stay on this floor, but he was insistent on going outside. Explained that if he was gone for longer than 1 hour he would be considedered AMA; family and patient verbalized understanding.
--- NOTE | 2025-04-04 16:32 | NUR ---
Patient discharged today. All education/instruction discussed with patient and spouse prior to leaving. Patient verbalized understanding and agreed with follow up plans and stated he will call and make appointments. All belongings gathered and given to patient prior to leaving. Patient left with spouse without waiting for wheelchair.
== END 2025-04-04 15:40 | disposition home or self-care (01) | DRG 690 ==
LOC: ER 18:00 → MEDS 04-03 00:17 → ERHOLD 04-03 00:17 → MEDS 04-03 02:23
PROVIDERS: Internal Medicine; Student in an Organized Health Care Education/Training Program; ADMIT Internal Medicine
DX: N13.6 Pyonephrosis (principal); I45.2 Bifascicular block; Z16.11 Resistance to penicillins; E87.1 Hypo-osmolality and hyponatremia; K56.609 Unspecified intestinal obstruction, unspecified as to partial versus complete obstruction; I49.3 Ventricular premature depolarization; B96.83 Acinetobacter baumannii as the cause of diseases classified elsewhere; F17.210 Nicotine dependence, cigarettes, uncomplicated; J45.909 Unspecified asthma, uncomplicated; N17.9 Acute kidney failure, unspecified; Z86.14 Personal history of Methicillin resistant Staphylococcus aureus infection; Z85.51 Personal history of malignant neoplasm of bladder; Z90.6 Acquired absence of other parts of urinary tract; Z90.79 Acquired absence of other genital organ(s); Z93.6 Other artificial openings of urinary tract status; Z85.46 Personal history of malignant neoplasm of prostate
CPT/HCPCS: 36415; 74176; 74177; 80053; 81001; 83605; 83690; 83880; 85025; 87077; 87086; 87186; 93005; 93010; 99285-25; A9270; J0696; J1650; J3010; J3373; J7030; J7040; J7050; Q9967

== ENCOUNTER 2025-04-13 13:17 | Observation (INO) | payer OTHER ==
[~2025-04-13] VITALS: Ht 167.6 cm; Wt 62.4 kg
[2025-04-13 14:17] LABS: BASOPHILS ABSOLUTE AUTO 0.04 K/mm3 (0.00-0.23); BASOPHILS PERCENT AUTO 1 % (0-2); EOSINOPHILS ABSOLUTE AUTO 0.41 K/mm3 (0.00-0.68); EOSINOPHILS PERCENT AUTO 6 % (0-6); Hematocrit 42.9 % (37.0-53.0); Hemoglobin 14.1 g/dL (13.5-17.5); IMMATURE GRAN ABSOLUTE AUTO 0.03 K/mm3 (0.00-0.10); IMMATURE GRAN PERCENT AUTO 0 % (0-1); LYMPHOCYTES ABSOLUTE AUTO 1.70 K/mm3 (0.84-5.20); LYMPHOCYTES PERCENT AUTO 25 % (21-46); MONOCYTES ABSOLUTE AUTO 0.57 K/mm3 (0.16-1.47); MONOCYTES PERCENT AUTO 9 % (4-13); Mean Corpuscular HGB Conc 32.9 g/dL (31.5-36.5); Mean Corpuscular Volume 98 fL (80-100); NEUTROPHILS ABSOLUTE AUTO 3.94 K/mm3 (1.96-9.15); NEUTROPHILS PERCENT AUTO 59 % (41-73); NRBC ABSOLUTE 0.00 K/mm3 (0.00-0.02); NRBC Auto 0.0 /100 WBC (0.0-0.2); Platelet Count 151 K/mm3 (150-400); RDW Coefficient Variation 12.6 % (11.7-14.2); RDW Standard Deviation 45.2 fL (35.1-46.3)
[2025-04-13 15:54] LABS: Source, Urine Clean Catch
[2025-04-13 15:56] LABS: Bilirubin, Urine Neg (Neg); Color, Urine Red (P-Yellow); Glucose Qualitative, Urine Neg (Neg); Ketones, Urine Neg (Neg); Leukocyte Esterase, Urine 3+ (Neg); Protein, Urine 3+ (Neg); Specific Gravity, Urine 1.015 (1.003-1.022); Urobilinogen, Urine NORM (Normal)
[2025-04-13 16:04] LABS: Red Blood Cells, Urine 50-100 /hpf (0-2); White Blood Cells, Urine 50-100 /hpf (0-5)
[2025-04-13] MEDS ORDERED: Ciprofloxacin 400MG/D5 200ML 200 ML IV ONE (16:10)
[2025-04-13 16:57] LABS: Alanine Aminotransfer (ALT/SGP 57.0 U/L (12-78); Albumin, Blood 2.9 g/dL (3.4-5.0); Albumin/Globulin Ratio 0.6 (0.8-1.8); Anion Gap 5.0 mmol/L (3-11); Aspartate Aminotrans (AST/SGOT 47.0 U/L (12-37); Bilirubin, Total 0.2 mg/dL (0.1-1.0); Blood Urea Nitrogen 11.0 mg/dL (8-24); CO2, Blood 30.0 mmol/L (21-32); Calcium, Blood 8.5 mg/dL (8.5-10.1); Chloride, Blood 103.0 mmol/L (98-108); Creatinine, Blood 0.98 mg/dL (0.60-1.20); Globulin, Blood 4.5 g/dL (2.2-4.0); Glucose, Blood 133.0 mg/dL (70-99); Potassium, Blood 4.1 mmol/L (3.5-5.5); Sodium, Blood 134.0 mmol/L (136-145); Total Protein, Blood 7.4 g/dL (6.4-8.2)
[2025-04-13] MEDS ORDERED: Morphine Sulfate 4 MG/1 ML Injection IV ONE (18:35)
[2025-04-13] MEDS ORDERED: CefTRIAXone Sodium 1,000 MG in NS 100 ML IV ONE (19:45)
[2025-04-13] MEDS ORDERED: FLU VACC TS2025-26(6MOS UP)/PF 45 MCG/0.5 ML SYRINGE IM SCH (19:45)
[2025-04-13] MEDS ORDERED: Morphine Sulfate 4 MG/1 ML Injection IV PRN (19:50)
[2025-04-13] MEDS ORDERED: NS 1,000 ML IV SCH (19:50)
[2025-04-13] MEDS ORDERED: Ondansetron HCl 2 MG / ML 2ML Vial IV PRN (19:50)
[2025-04-13] MEDS ORDERED: Doxycycline Hyclate 100 MG in Dextrose 5% 250 ML IV SCH (20:00)
[2025-04-13] MEDS ORDERED: NS 1,000 ML IV ONE (20:00)
[2025-04-13] MEDS ORDERED: MIRALAX17 GM PO (20:41)
[2025-04-13] MEDS ORDERED: TAMS.4ER PO (20:41)
[2025-04-13] MEDS ORDERED: Lactobacil 2-S.Thermo-Bifido 1 1 Cap PO SCH (21:00)
[2025-04-13] MEDS ORDERED: Heparin Sodium,Porcine 5,000 UNIT/0.5 ML SDV SC SCH (21:00)
[2025-04-13 21:07] VITALS: BP 137/79
[2025-04-13 22:29] LABS: Chlamydia Trachomatis Urine NOT DETECTED (NOT DETECT); Neisseria Gonorrhoea Urine NOT DETECTED (NOT DETECT)
--- NOTE | 2025-04-14 04:19 | NUR ---
Patient admitted to room 328 from the ER via stretcher, oriented x 4, complaining of abdominal pain, urostomy intact, and left side nephrostomy tube, bag changed to nephrostomy due to hole in current bag, ostomy dressing and bag changed to urostomy due to wafer pulling away from skin, pain medication given according to orders, IV NS at 125 cc/ hour per doctor orders tp right fA IV, antibiotics infusing from ED, oral fluids taken without difficulty, patient states he is homeless, Contact isolation due to MRSA in February 2025. Call light in place, up to bathroom independently, bed in low and locked position, will continue to monitor.
[2025-04-14 04:27] VITALS: BP 142/80
[2025-04-14 05:41] LABS: BASOPHILS ABSOLUTE AUTO 0.03 K/mm3 (0.00-0.23); BASOPHILS PERCENT AUTO 1 % (0-2); EOSINOPHILS ABSOLUTE AUTO 0.46 K/mm3 (0.00-0.68); EOSINOPHILS PERCENT AUTO 10 % (0-6); Hematocrit 35.7 % (37.0-53.0); Hemoglobin 11.8 g/dL (13.5-17.5); IMMATURE GRAN ABSOLUTE AUTO 0.00 K/mm3 (0.00-0.10); IMMATURE GRAN PERCENT AUTO 0 % (0-1); LYMPHOCYTES ABSOLUTE AUTO 1.42 K/mm3 (0.84-5.20); LYMPHOCYTES PERCENT AUTO 32 % (21-46); MONOCYTES ABSOLUTE AUTO 0.49 K/mm3 (0.16-1.47); MONOCYTES PERCENT AUTO 11 % (4-13); Mean Corpuscular HGB Conc 33.1 g/dL (31.5-36.5); Mean Corpuscular Volume 98 fL (80-100); NEUTROPHILS ABSOLUTE AUTO 2.08 K/mm3 (1.96-9.15); NEUTROPHILS PERCENT AUTO 46 % (41-73); NRBC ABSOLUTE 0.00 K/mm3 (0.00-0.02); NRBC Auto 0.0 /100 WBC (0.0-0.2); Platelet Count 154 K/mm3 (150-400); RDW Coefficient Variation 12.7 % (11.7-14.2); RDW Standard Deviation 45.7 fL (35.1-46.3)
[2025-04-14 05:49] LABS: Prothrombin Time Results 10.9 Sec (9.7-11.5)
[2025-04-14 06:15] LABS: Anion Gap 6.0 mmol/L (3-11); Blood Urea Nitrogen 9.0 mg/dL (8-24); CO2, Blood 28.0 mmol/L (21-32); Calcium, Blood 8.6 mg/dL (8.5-10.1); Chloride, Blood 109.0 mmol/L (98-108); Creatinine, Blood 0.91 mg/dL (0.60-1.20); Glucose, Blood 94.0 mg/dL (70-99); Magnesium, Blood 2.1 mg/dL (1.6-2.4); Potassium, Blood 4.0 mmol/L (3.5-5.5); Sodium, Blood 139.0 mmol/L (136-145)
[2025-04-14 07:17] VITALS: BP 135/75
[2025-04-14] MEDS ORDERED: VISBIOME 112.51 EACH PO (11:47)
[2025-04-14] MEDS ORDERED: DOXY100 PO (11:48)
[2025-04-14] MEDS ORDERED: NAPR500EC PO (11:48)
[2025-04-14] MEDS ORDERED: CefTRIAXone Sodium 1,000 MG in NS 100 ML IV SCH (13:00)
--- NOTE | 2025-04-14 14:17 | NUR ---
PT DISCHARGED 1325 WITH DC INSTRUCTION- CASE MANAGEMENT CALLED [facility]AXI FOR PT AND JUAN DIEGOANCE TO [employer] [facility] RX FROM [facility]. SENT WITH WRITTEN SCRIPT FOR TRAMADOL FOR L GROIN PAIN. L NEPH DRESSING CHANGED BEFORE PT DC'D. OLD DRESSING TEGADERM SITE WAS SATURATED. THERE WAS DIRT AT THE BASE OF THE TUBING. CLEANSED ENTIRE DRAIN SITE WITH IODINE, APPLIED SECUREMENT DEVICE, EXTRA TAPE TO SECURE ON OUTSIDE AND ALL COVERED WITH X LG OPSITE. INSTRUCTIONS GIEN TO FIANCE AND EXTRA SUPPLIES IF NEEDED. ALL IV ABX ADMINISTERED BEFORE PT DC'D. UNDERSTANDS THE IMPORTANCE OF PICKING UP RX AND FINISHING ALL RX. ALL BELONGINGS SENT HOME WITH PT INCLUDING A WEED/DAB THAT WAS FOUND DAMAGED AND LEAKING IN THE RN LOCK DRAWER. GIVEN BACK TO PT IN CLEAR ZIPLOCK- PT BECAME IRRATE AT RN AND STATE WE'VE COST ROSAMARIA OVER 150$ AND WE NEED TO PAY FOR IT. I STATED THESE ITIMS ARE NOT TO BE BROUGHT INTO THE HOSPITAL, WE CAN'T BE RESPONSIBLE FOR THEM. HE YELLED AT STAFF IN THE SEGAL FROM A DISTANCE "QUIT LOOKING AT ME"!! AND MARCHED OUT WITH ROSANNE. REFUSED WHEELCHAIR. STEADY ON FEET.
== END 2025-04-14 13:23 | disposition home or self-care (01) ==
LOC: ER 13:17 → MEDS 13:18
PROVIDERS: Emergency Medicine; Nurse Practitioner Acute Care; Physician Assistant; ADMIT Student in an Organized Health Care Education/Training Program
DX: N45.1 Epididymitis (principal); N10 Acute pyelonephritis; N13.30 Unspecified hydronephrosis; N43.3 Hydrocele, unspecified; J45.20 Mild intermittent asthma, uncomplicated; F17.210 Nicotine dependence, cigarettes, uncomplicated; Z85.51 Personal history of malignant neoplasm of bladder; Z79.2 Long term (current) use of antibiotics; Z88.6 Allergy status to analgesic agent; Z93.6 Other artificial openings of urinary tract status
CPT/HCPCS: 36415; 74177; 76870; 80048; 80053; 81001; 83735; 85025; 85610; 87086; 87491; 87591; 96365-59; 96366; 96367; 96372; 96375; 96376; 99285-25; A9270; G0378; J0696; J0744; J1644; J2270; J7030; J7060; Q9967

== ENCOUNTER 2025-04-27 01:30 | Emergency (ER) | payer OTHER ==
[~2025-04-27] VITALS: Ht 170.2 cm; Wt 68.0 kg
[~2025-04-27 01:30] MED LIST changes: +DOXY100 PO; +NAPR500EC PO; +TAMS.4ER PO
[2025-04-27] MEDS ORDERED: Morphine Sulfate 4 MG/1 ML Injection IV ONE ×2 (02:00→04:00)
[2025-04-27 02:46] LABS: BASOPHILS ABSOLUTE AUTO 0.07 K/mm3 (0.00-0.23); BASOPHILS PERCENT AUTO 1 % (0-2); EOSINOPHILS ABSOLUTE AUTO 0.33 K/mm3 (0.00-0.68); EOSINOPHILS PERCENT AUTO 5 % (0-6); Hematocrit 43.7 % (37.0-53.0); Hemoglobin 14.6 g/dL (13.5-17.5); IMMATURE GRAN ABSOLUTE AUTO 0.01 K/mm3 (0.00-0.10); IMMATURE GRAN PERCENT AUTO 0 % (0-1); LYMPHOCYTES ABSOLUTE AUTO 2.28 K/mm3 (0.84-5.20); LYMPHOCYTES PERCENT AUTO 33 % (21-46); MONOCYTES ABSOLUTE AUTO 0.66 K/mm3 (0.16-1.47); MONOCYTES PERCENT AUTO 9 % (4-13); Mean Corpuscular HGB Conc 33.4 g/dL (31.5-36.5); Mean Corpuscular Volume 94 fL (80-100); NEUTROPHILS ABSOLUTE AUTO 3.66 K/mm3 (1.96-9.15); NEUTROPHILS PERCENT AUTO 52 % (41-73); NRBC ABSOLUTE 0.00 K/mm3 (0.00-0.02); NRBC Auto 0.0 /100 WBC (0.0-0.2); Platelet Count 239 K/mm3 (150-400); RDW Coefficient Variation 12.1 % (11.7-14.2); RDW Standard Deviation 42.2 fL (35.1-46.3)
[2025-04-27 03:16] LABS: Alanine Aminotransfer (ALT/SGP 41.0 U/L (12-78); Albumin, Blood 3.1 g/dL (3.4-5.0); Albumin/Globulin Ratio 0.6 (0.8-1.8); Anion Gap 7.0 mmol/L (3-11); Aspartate Aminotrans (AST/SGOT 40.0 U/L (12-37); Bilirubin, Total 0.6 mg/dL (0.1-1.0); Blood Urea Nitrogen 14.0 mg/dL (8-24); CO2, Blood 27.0 mmol/L (21-32); Calcium, Blood 9.0 mg/dL (8.5-10.1); Chloride, Blood 103.0 mmol/L (98-108); Creatinine, Blood 0.96 mg/dL (0.60-1.20); Globulin, Blood 5.3 g/dL (2.2-4.0); Glucose, Blood 100.0 mg/dL (70-99); Magnesium, Blood 2.1 mg/dL (1.6-2.4); Potassium, Blood 4.3 mmol/L (3.5-5.5); Sodium, Blood 133.0 mmol/L (136-145); Total Protein, Blood 8.4 g/dL (6.4-8.2)
[2025-04-27 05:57] LABS: Source, Urine Urostomy Bag
[2025-04-27 05:58] LABS: Source, Urine Clean Catch
[2025-04-27 06:00] LABS: Bilirubin, Urine Neg (Neg); Color, Urine Red (P-Yellow); Glucose Qualitative, Urine Neg (Neg); Ketones, Urine Neg (Neg); Leukocyte Esterase, Urine 3+ (Neg); Protein, Urine 3+ (Neg); Specific Gravity, Urine 1.010 (1.003-1.022); Urobilinogen, Urine NORM (Normal)
[2025-04-27 06:02] LABS: Bilirubin, Urine Neg (Neg); Color, Urine Yellow (P-Yellow); Glucose Qualitative, Urine Neg (Neg); Ketones, Urine Neg (Neg); Leukocyte Esterase, Urine 3+ (Neg); Protein, Urine 3+ (Neg); Specific Gravity, Urine 1.010 (1.003-1.022); Urobilinogen, Urine NORM (Normal)
[2025-04-27 06:10] LABS: Red Blood Cells, Urine 50-100 /hpf (0-2)
[2025-04-27 06:12] LABS: Red Blood Cells, Urine TNTC /hpf (0-2)
[2025-04-27] MEDS ORDERED: BACTRIM DS TAB1 EAC1 PO (06:29)
[2025-04-27] MEDS ORDERED: Trimethoprim/Sulfamethoxazole DS Tab PO ONE (06:30)
[2025-04-27] MEDS ORDERED: RX Prepack 6 Tabs Oxycodone 5mg UD ONE (06:30)
[2025-04-27 06:43] VITALS: BP 157/96
== END 2025-04-27 06:48 | disposition home or self-care (01) ==
LOC: ER 01:30
PROVIDERS: Student in an Organized Health Care Education/Training Program
DX: N30.00 Acute cystitis without hematuria (principal); R10.32 Left lower quadrant pain; J45.909 Unspecified asthma, uncomplicated; Z93.6 Other artificial openings of urinary tract status; Z87.891 Personal history of nicotine dependence; Z79.899 Other long term (current) drug therapy; Z88.5 Allergy status to narcotic agent
CPT/HCPCS: 74177; 80053; 81001; 83690; 83735; 85025; 87086; 96374-59; 96376; 99284-25; A9270; J2270; Q9967